=== PATIENT | male | born 1965 | race Caucasian/White ===

== ENCOUNTER → 2018-08-19 08:37 | Outpatient (CLI) | payer BC ==
--- NOTE | 2018-08-23 11:18 | ST ---
PATIENT:MONTSERRAT MAYO MEDICAL RECORD: [id number] SEX: M LOCATION:[facility] ORDER #: ADMISSION DATE: 08/19/18 AGE OF PATIENT: 53 REFERRING PHYSICIAN: INTERPRETING PHYSICIAN: MULU QUIJANO MD DATE OF SERVICE: 08/19/2018 Nuclear stress test. INDICATION: Chest pain, shortness of breath. He was exercised on standard Heath protocol for 8 minutes achieving greater than 85% maximum target heart rate response with 33 mCi of sestamibi injected at peak stress, 11 mCi were used previously for rest images. FINDINGS: Gated SPECT reveals a preserved ejection fraction at 59% with good wall motioning and thickening and brightening throughout all segments. SPECT IMAGING: Cardiolite was used as myocardial perfusion agent. There is definite reversible changes inferiorly and apically, this includes the basal, mid apical inferior segments as well as the apex itself. The degree of reversibility is moderate. The amount of myocardial involved is moderate. OVERALL IMPRESSION: 1. This is an abnormal nuclear stress test, moderate degree of reversibility, inferiorly and apically. 2. Gated SPECT reveals a preserved ejection fraction greater than 50% in this patient with ongoing symptomatology, the current scan does suggest the presence of hemodynamically significant coronary artery disease. We would proceed with coronary angiography as followup study. TRANSINT:[id number] Voice Confirmation ID: [id number] DOCUMENT ID: [id number] MULU QUIJANO MD at 1118 CC: [id number] DICTATION DATE: 08/19/18 1427 SENIOR PRODUCTION MANAGER: 08/19/18 2356 DEP CLI 08/19/18 [address] [place] [address]
== END | disposition home or self-care (01) ==
LOC: D.HCCARDIO 08:30
DX: R07.9 Chest pain, unspecified (principal)

== ENCOUNTER 2018-08-29 09:38 | Outpatient (CLI) | payer BC ==
[~2018-08-29] VITALS: Ht 170.2 cm; Wt 54.5 kg
--- NOTE | ~2018-08-29 | OP ---
PATIENT NAME: MONTSERRAT MAYO MEDICAL RECORD: [id number] :69 LOCATION:D[facility] ADMISSION DATE: SURGEON: MULU QUIJANO MD DATE OF OPERATION: 08/29/2018 PROCEDURES: 1. PTCA and stent, LAD diagonal. 2. Left heart catheterization. 3. Selective coronary angiography. 4. Left ventriculogram. INDICATION: Angina and coronary artery disease. PROCEDURE IN DETAIL: After informed consent was obtained with detailed description of risks and benefits as well as alternative therapies, the patient elected to proceed with angiogram and angioplasty. The right femoral area was prepped and draped in normal sterile fashion. The right femoral artery was cannulated via modified Seldinger technique with placement of 6-Greenlandic sheath. All catheters were exchanged through this sheath. FINDINGS: Left ventriculogram performed in standard 30-degree SALGADO view reveals good cardiac wall motion throughout all segments. Overall ejection fraction estimated at 60%. SELECTIVE CORONARY ANGIOGRAPHY: 1. Left main is with no significant angiographic disease. 2. Left anterior descending is a large diagonal system. The diagonal has 95% stenosis at the ostium. 3. Left circumflex shows moderate irregularities, but no flow-limiting stenosis. 4. Right coronary is small and nondominant with no significant disease. PTCA AND STENT OF THE LAD DIAGONAL: The stent used was 2.5 x 8 mm Integrity. Result was 0% residual stenosis. OVERALL IMPRESSION: Successful PTCA and stent of the LAD diagonal going from 95% initial stenosis to 0% residual. TRANSINT:[id number] Voice Confirmation ID: [id number] DOCUMENT ID: [id number] MULU QUIJANO MD CC: [id number] DICTATION DATE: 08/29/18 1235 ADVERTISING REPRESENTATIVE: 08/29/18 1441 REG [facility] [address] [id number]
--- NOTE | ~2018-08-29 | HEMODYNAMI ---
PATIENT:MONTSERRAT MAYO MEDICAL RECORD: [id number] : 69 LOCATION:[facility] ADMISSION DATE: 08/29/18 Generatedon:08/29/201812:35 Patient name: MONTSERRAT MAYO Patient #: [id number] SSN: DO B: 1965 Date of study: 08/29/2018 Page: Of Hemodynamic Procedure Report Patient Data Patient Demographics Procedure consent was obtained First Name: MONTSERRAT Gender: Male Last Name: MARIA ESTHER : 1965 Middle Initial: A Age: 53 year(s) Patient #: [id number] Race: Unknown Additional ID: [id number] Contact details [address]: [address] [address] State: [place] City: [place] Zip code: [address] Past Medical History Allergies: No known allergies Admission Admission Data Admission Date: 08/29/2018 Admission Time: 9:38 Procedure Procedure Types Cath Procedure Diagnostic Procedure [facility] w/Coronaries PCI Procedure Coronary Stent Coronary Stent Initial Procedure Description Procedure Date Procedure Date: 08/29/2018 Procedure Start Time: 12:22 Procedure End Time: 12:35 Procedure Staff Name Function Valentin Gomez MD Performing Physician Maral Rubio RT Monitor Mana Valdez RN Nurse Maral Rubio RT Scrub Ander Lopez RN Windows System Admin Procedure Data Cath Procedure Fluoroscopy Diagnostic fluoroscopy Total fluoroscopy Time: 2 time: 2 min min Diagnostic fluoroscopy Total fluoroscopy dose: 93 dose: 93 mGy mGy Contrast Material Contrast Material Type Amount (ml) Isovue 300 82 Entry Location Entry Primary Successful Side Size Upsize Upsize Entry Closure Succes sful Closure Location (Fr) 1 (Fr) 2 (Fr) Remarks Device Remarks Femoral Right 5 Fr 6 Fr Exoseal artery Short Estimated blood loss: 10 ml Diagnostic catheters Device Type Used For End Catheter Placement MULTIPACK Pigtail 5 Fr LV Angiography catheter MULTIPACK JL 4.0 5Fr Left Coronary catheter Angiography MULTIPACK 3DRC 5Fr Right Coronary catheter Angiography Procedure Complications No complications Procedure Medications Medication Administration Route Dosage 0.9% NaCl I.V. 100 ml/hr Oxygen etCO2 Nasal cannula 2 l/min Lidocaine 2% added to field 20 Heparin Flush Bag added to field 2 bags (1000units/500ml NS) Versed I.V. 2 mg Fentanyl I.V. 50 mcg Versed I.V. 1 mg Fentanyl I.V. 25 mcg Heparin Bolus I.V. 4000 units Integrilin (Bolus I.V. 5 ml 2mg/ml) Plavix P.O. 600 mg Hemodynamics Rest Heart Rate: 46 (bpm) Snapshots Pre Cath Intra NCS Post Cath Vital Signs Time Heart Resp SPO2 etCO2 NIBP Rhythm Pain Sedation Rate (ipm) (%) (mmHg) (mmHg) Status Level (bpm) 12:09:12 49 14 100 39 104/72(94) SB 0 (11) 10(A) , No pain 12:13:20 54 15 100 18.1 102/71(88) SB 0 (11) 10(A) , No pain 12:17:30 46 11 100 43.2 99/61(74) SB 0 (11) 10(A) , No pain 12:21:37 51 13 99 43.9 91/56(70) SB 0 (11) 10(A) , No pain 12:25:43 56 16 100 47.7 91/58(73) SB 0 (11) 9(A) , No pain 12:29:51 58 10 100 47.7 90/56(70) SB 0 (11) 10(A) , No pain 12:34:01 57 10 100 46.9 87/48(64) SB 0 (11) 10(A) , No pain Medications Time Medication Route Dose Verified Delivered Reason Notes Effectiveness by by 12:08:06 0.9% NaCl I.V. 100 Valentin Mana used for ml/hr Jason Valdez reinstatement clerk 12:08:12 Oxygen etCO2 2 Valentin Mana used for Nasal l/min Jason Valdez procedure cannula RN 12:08:18 Lidocaine 2% added 20ml Valentin Valentin for local to vial Jason Gomez MD anesthetic field 12:08:22 Heparin Flush added 2 Valentin Valentin used for Bag to bags Jason Gomez MD procedure (1000units/500ml field NS) 12:18:23 Versed I.V. 2 mg Valentin Mana for sedation Jason Valdez RN 12:18:30 Fentanyl I.V. 50 Valentin Nga for sedation mcg Jason Valdez RN 12:22:51 Versed I.V. 1 mg Valentin Wallaceyla for sedation Jason Valdez RN 12:22:55 Fentanyl I.V. 25 Valentin Wallaceyla for sedation mcg Jason Valdez RN 12:29:09 Heparin Bolus I.V. 4000 Valentin Nga for verif ied units Jason Valdez anticoagulation with Dr. NELSY Gomez 12:29:26 Integrilin I.V. 5 ml Valentin Nga for waste d (Bolus 2mg/ml) Jason Valdez anticoagulation 5mL RN 12:29:41 Plavix P.O. 600 Valentin Adair for mg Jason Valdez antiplatelet RN therapy Procedure Log Time Note 11:58:16 Ander Lopez RN sent for patient. Start room use. 11:58:17 Time tracking: Regular hours (M-F 7:00 - 5:00) 11:58:20 Plan of Care:Hemodynamics will remain stable., Cardiac rhythm will remain stable., Comfort level will be maintained., Respiratory function will remain adequate., Patient/ family verbilizes understanding of procedure., Procedure tolerated without complication., Recovers from procedure without complications.. 12:03:48 Patient received from Pre/Post Procedure Room to [facility] 3 Alert and oriented. Tansferred to table in Supine position. 12:03:49 Warm blankets applied, and xavi hugger turned on for patient comfort. 12:03:50 Correct patient and procedure confirmed by team. 12:03:51 Signed procedure consent form obtained from patient. 12:03:51 ECG and BP/O2 sat monitors applied to patient. 12:03:52 Full Disclosure recording started 12:07:55 Vital chart was started 12:08:06 0.9% NaCl 100 ml/hr I.V. was administered by Mana Valdez RN; used for procedure; 12:08:12 Oxygen 2 l/min etCO2 Nasal cannula was administered by Mana Valdez RN; used for procedure; 12:08:18 Lidocaine 2% 20ml vial added to field was administered by Valentin Gomez MD; for local anesthetic; 12:08:22 Heparin Flush Bag (1000units/500ml NS) 2 bags added to field was administered by Valentin Gomez MD; used for procedure; 12:12:46 Rhythm: sinus bradycardia 12:12:59 H&P Date Dictated: 08/10/2018 Within 30 days and on chart., H&P Addendum completed by physician on day of procedure. (MUST COMPLETE FOR ALL OUTPATIENTS). 12:13:00 Pre-procedure instructions explained to patient. 12:13:00 Pre-op teaching completed and patient verbalized understanding. 12:13:03 Family in patients room. 12:13:05 Patient NPO since Midnight. 12:13:13 Patient allergic to No known allergies 12:13:15 Is the patient allergic to Iodine/contrast media? No. 12:13:20 Is patient on blood thinner?No 12:13:21 Patient diabetic? No. 12:15:01 Previous problem with sedation/anesthesia? No ? 12:15:02 Snore? No 12:15:04 Sleep apnea? No 12:15:04 Deviated septum? No 12:15:06 Opens mouth fully? Yes 12:15:06 Sticks out tongue? Yes 12:15:08 Airway obstruction? No ? 12:15:10 Dentures? Yes out 12:15:13 Pre procedure: right dorsailis pedis pulse 2+ Normal; easily identifiable; not easily obliterated 12:15:16 Modified Zafar's test Ulnar > 7 seconds. 12:15:18 Patient pain scale 0/10 ?. 12:15:25 Lab results completed and on chart. 12:15:41 Right groin area was prepped with chlora-prep and draped in sterile fashion 12:15:42 Alarms reviewed by R. N. 12:15:42 Sharps counted by scrub and verified by R.N. 12:15:49 Use device set Femoral Dx 12:15:50 ACIST Syringe (41835) opened to sterile field. 12:15:51 Bag Decanter () opened to sterile field. 12:15:51 Medline Cath Pack ([id number]) opened to sterile field. 12:15:51 DIAGNOSTIC WIRE .035 260cm J wire (939101) opened to sterile field. 12:15:52 ACIST Hand Control (40919) opened to sterile field. 12:15:53 ACIST Manifold (99003) opened to sterile field. 12:15:53 DIAGNOSTIC Multipack 5Fr catheter set ([id number]) opened to sterile field. 12:15:54 Tegaderm 4 x 4 (1626W) opened to sterile field. 12:15:55 SHEATH 5FR Gilbert ([id number]) opened to sterile field. 12:16:09 Baseline sample Acquired. 12:17:57 Final Timeout: patient, procedure, and site verified with staff and physician. All members of the team are in agreement. 12:17:59 Right groin site verified by team. 12:18:05 Fire Safety Assessment: A--An alcohol-based skin anteseptic being used preoperatively., C--Open oxygen or nitrous oxide is being used., D--An ESU, laser, or fiber-optic light is being used. 12:18:10 Physical assessment completed. ASA score P 2 - A patient with mild systemic disease as per Valentin Gomez MD. 12:18:12 Sedation plan: IV Moderate Sedation Medication:Versed, Fentanyl 12:18:23 Versed 2 mg I.V. was administered by Mana Valdez RN; for sedation; 12:18:30 Fentanyl 50 mcg I.V. was administered by Mana Valdez RN; for sedation; 12:20:45 Zero performed for pressure channel P1 12:22:00 Procedure started. 12:22:24 Local anesthetic to right femoral artery with Lidocaine 2% by Valentin Gomez MD.INITIAL ACCESS ONLY 12:22:41 A 5 Fr sheath was inserted into the Right Femoral artery 12::51 Versed 1 mg I.V. was administered by Mana Valdez RN; for sedation; 12::55 Fentanyl 25 mcg I.V. was administered by Mana Valdez RN; for sedation; 12:23:03 A MULTIPACK Pigtail 5 Fr catheter was advanced over the wire and used for LV Angiography. 12:23:29 LV gram done using SALGADO 12:23:32 Injector settings: Ml/sec: 10, Volume: 20, 12:23:43 EF : 50 % 12:23:48 Catheter removed. 12:23:51 A MULTIPACK JL 4.0 5Fr catheter was advanced over the wire and used for Left Coronary Angiography. 12:25:40 Catheter removed. 12::53 A MULTIPACK 3DRC 5Fr catheter was advanced over the wire and used for Right Coronary Angiography. 12::18 Catheter removed. 12:: Use device set FELIZ PCI 12:26:24 SHEATH 6FR Gilbert (XRE779) opened to sterile field. 12::18 INFLATOR Merit BasixCompak (HK1468) opened to sterile field. 12::22 CHOICE PT Extra Support 182cm wire ([id number]) opened to sterile field. 12:27:36 Sheath upsized to a 6 Fr Short. 12::47 6 Fr XBLAD 3.5 guide catheter was inserted over the wire 12::57 GUIDE 6FR XBLAD 3.5 catheter ([id number]) opened to sterile field. 12::25 WHISPER wire advanced. 12::35 WHISPER 300cm guide wire ([id number]) opened to sterile field. 12:29:09 Heparin Bolus 4000 units I.V. was administered by Mana Valdez RN; for anticoagulation; verified with Dr. Gomez 12:: Integrilin (Bolus 2mg/ml) 5 ml I.V. was administered by Mana Valdez RN; for anticoagulation; wasted 5mL 12:29:40 Place stent Inflation Number: 1 A INTEGRITY OTW 2.5 X 8 stent ([id number]) was prepped and advanced across the 1st Diag. The stent was deployed at 15 JUAN CARLOS for 0:03 (min:sec). 12:29:41 Plavix 600 mg P.O. was administered by Maan Valdez RN; for antiplatelet therapy; 12:30:07 Stent catheter was removed intact over wire. 12:30:08 Wire removed. 12:30:08 Guide catheter removed. 12::18 Sheath removed intact; hemostasis achieved with Exoseal to the Right Femoral artery. 12:30:20 Procedure ended.(Physican Out) 12:31:45 Fluoroscopy time 02.00 minutes. 12:31:50 Flurop Dose total: 93 12:31:50 Fluoroscopy dose: 93 mGy 12::53 Contrast amount:Isovue 300 82ml. 12:31:54 Sharps counted by scrub and verified by R.N. 12:31:56 Insertion/operative site no bleeding no hematoma. 12:31:58 Post-op/insertion site Right Femoral artery dressed using a 4 x 4 and Tegaderm. 12:32:01 Post right femoral artery:stable, clean and dry 12:32:02 Post Procedure Pulses reassessed and unchanged 12:32:05 Post-procedure physical assessment completed. ASA score P 2 - A patient with mild systemic disease as per Valentin Gomez MD. 12:32:08 Post procedure rhythm: unchanged. 12:32:11 Estimated blood loss: 10 ml 12:32:12 Post procedure instruction explained to patient.Patient verbalizes understanding. 12:32:13 Patient needs reinforcement of post procedure teaching. 12:32:19 Procedure type changed to Cath procedure, Diagnostic procedure, LHC, LHC w/Coronaries, PCI procedure, Coronary Stent, Coronary Stent Initial 12:32:33 Procedure Complication : No complications 12:32:36 See physician's report for complete and final results. 12:33:01 Procedure and supply charges have been captured, reviewed, submitted and are correct. 12:34:34 Vital chart was stopped 12:34:54 Report given to Pre/Post Procedure Room. 12:34:56 Patient transfered to Pre/Post Procedure Room with Stretcher. 12:35:04 Procedure ended. 12:35:04 Full Disclosure recording stopped 12:35:07 End room use (Document Last) Intervention Summary Intervention Notes Time ActionType Lesion and Equipment Action# Pressure Duration Attributes Used 12:29:40 Place stent 1st Diag INTEGRITY 1 15 00:03 OTW 2.5 X 8 stent ([id number]) Device Usage Item Name Manufacture Quantity Catalog Number Hospital Part Current Minim al Lot# / Charge Number Stock Stock Serial# Code ACIST Acist 1 71538 590205 860219 394633 20 Syringe Medical (97368) Systems Inc Bag Microtek 1 354016 28046 219100 5 Decanter Medical Inc. () Medline Medline 1 [id number] 637032 25332 593695 5 Cath Pack ([id number]) DIAGNOSTIC St Amor 1 313238 101093 423054 944717 30 WIRE .035 260cm J wire (442362) ACIST Hand Acist 1 59778 708522 209094 729543 5 Control Medical (89729) Systems Inc ACIST Acist 1 23790 203544 825298 888530 5 Manifold Medical (01036) Systems Inc DIAGNOSTIC Cardinal 1 JG2674 609086 28106 783023 30 Multipack Health 5Fr catheter set (HJ6018) Tegaderm 4 3M 1 1626W 860334 309445 819381 5 x 4 (1626W) SHEATH 5FR Terumo 1 XLP038 053657 133916 909844 5 Gilbert (QET682) MULTIPACK Cardinal 1 606235 5 Pigtail 5 Health Fr catheter MULTIPACK Cardinal 1 015619 5 JL 4.0 5Fr Health catheter MULTIPACK Cardinal 1 037318 5 3DRC 5Fr Health catheter SHEATH 6FR Terumo 1 HDV206 920275 910679 710459 40 Gilbert (GZN273) INFLATOR Merit 1 KW0372 754846 359327 505949 15 [facility] Medical BasixCompak (MN2573) CHOICE PT Noble 1 [id number] 418620 954822 339205 5 Extra Scientific Support 182cm wire ([id number]) GUIDE 6FR Cardinal 1 [id number] 780468 382024 679758 10 XBLAD 3.5 Health catheter ([id number]) WHISPER Wallace 1 [id number] 158637 263935 466475 5 300cm guide Vascular wire ([id number]) INTEGRITY Medtronic 1 [id number] 011376 281799 868103 0 [id number] OTW 2.5 X 8 stent ([id number]) Signature Audit [place] Stage Time Signature Unsigned Intra-Procedure 08/29/2018 Maral 12:35:20 PM Counts RT(R) Signatures Monitor : Maral Signature : Counts RT Date : Time : [facility] [address] [place] [address]
[2018-08-29] MEDS ORDERED: ASPIRIN EC81 M1 PO (10:01)
[2018-08-29] MEDS ORDERED: CELEXA20 MG PO (10:01)
[2018-08-29 10:11] VITALS: BP 115/71; Ht 170.2 cm; Wt 54.5 kg
[2018-08-29 10:13] LABS: BASOPHILS 0.4 % (0-2); EOSINOPHILS 2.9 % (0-7); HEMATOCRIT 42.4 % (42.0-54.0); HEMOGLOBIN 14.7 g/dL (13.5-17.5); LYMPHOCYTES 28.9 % (15-50); MCH 31.8 pg (26.0-34.0); MCHC 34.7 g/dL (31.0-37.0); MCV 91.8 fL (80.0-100.0); MEAN PLATELET VOLUME 9.6 fL (7.4-10.4); MONOCYTES 9.6 % (2-11); NEUTROPHILS 58.2 % (40-80); PLATELET COUNT 185 10x3/uL (130-400); RBC 4.62 10x6/uL (4.20-6.10); RDW 12.5 % (11.5-14.5); WBC 4.5 10x3/uL (4.8-10.8)
[2018-08-29 10:34] LABS: CALC OSMOLALITY 283 mosm/kg (275-300); CALCIUM 8.7 mg/dL (8.5-10.1); CARBON DIOXIDE 26.9 mmol/L (21.0-32.0); CHLORIDE - SERUM 104 mmol/L (98-107); CREATININE - SERUM 1.1 mg/dL (0.6-1.3); GLUCOSE 91 mg/dL (74-106); POTASSIUM - SERUM 4.2 mmol/L (3.5-5.1); SODIUM 142 mmol/L (136-145); UREA NITROGEN 16 mg/dL (7-18); eGFR NON AFRICAN AMERICAN 75 mL/min (90-120)
[2018-08-29] MEDS ORDERED: PLAVIX75 MG PO (12:44)
--- NOTE | 2018-08-29 13:02 | NUR ---
RECEIVED PT FROM ELECTRONICS TECHNOLOGY INSTRUCTOR, PT IS SLEEPING, RESP WITH EASE ON O2 AT 2LPM VIA NC. SINUS PETER AT 48. BP IS 90/58. HOB IS FLAT, FEMSTOP INTACT TO RIGHT GROIN, WITH PRESSURE AT 130. PEDAL PULSES BY DOPPLER. RESP WITH EASE ON OT AT 2LPM VIA NC. AT BEDSIDE, CALL LIGHT IN REACH.
--- NOTE | 2018-08-29 13:08 | NUR ---
FEMSTOP IN TACT, NO BLEEDING OR HEMATOMA NOTED. PEDAL PULSES BY DOPPLER. HOB IS FLAT, SINUS PETER AT 46, BP IS 85/54. AT BEDSIDE, CALL LIGHT IN REACH.
--- NOTE | 2018-08-29 13:21 | NUR ---
PT SLEEPING INTERMITTENTLY, FEMSTOP INTACT WITH NO BLEEDING OR HEMATOMA AT CATH SITE. PEDAL PULSES BY DOPPLER. SINUS PETER AT 46.
--- NOTE | 2018-08-29 14:08 | NUR ---
1336 PT C/O PAIN TO RIGHT UPPER CHEST AREA, RATES A 6/10, DENIES ANY SHORTNESS OF BREATH, NAUSEA OR RADIATION. EKG OBTAINED, SINUS PETER WITH RATE OF 44. BP IS 110/76. HOB TILTED UP, FEMSTOP WEANED OF 20 MM HG. PEDAL PULSES PALPABLE. APPLE JUICE SERVED. FAMILY AT BEDSIDE. 1342 RECHECK PT, PT STATES PAIN RESOLVED. NO BLEEDING OR HEMATOMA NOTED AT CATH SITE, FEMSTOP IN PLACE.
--- NOTE | 2018-08-29 14:26 | NUR ---
1350 FEMSTOP WEANED OF 20 MM HG, NO BLEEDING AT SITE. PEDAL PULSES PALPABLE. SINUS PETER AT 44. DENIES ANY C/O CHEST PAIN AT THIS TIME.
--- NOTE | 2018-08-29 14:30 | NUR ---
1410 20 MM HG PRESSURE WEANED FROM FEMSTO[P WITH NO BLEEDING NOTED. PEDAL PULSES PALPABLE. PT DENIES ANY C/O CHES PAIN AT THIS TIME. SINUS PETER AT 47. 1425 20 MM HG PRESSURE WEANED FROM FEMSTOP WITH NO BLEEDING NOTED. PEDAL PULSES PALPABLE. HOB IS TILTED. FAMILY AT BEDSIDE. CALL LIGHT IN REACH, DENIES ANY C/O PAIN AT THIS TIME.
--- NOTE | 2018-08-29 14:54 | NUR ---
3880 DR QUIJANO HAS ROUNDED ON PT AND REVIEWED EKG, NO NEW ORDERS NOTED. PT DENIES ANY FURTHER C/O CHEST PAIN. FEMSTOP HAS BEEN WEANED WITH NO BLEEDING NOTED AT SITE. PEDAL PULSES PALPABLE. HOB IS FLAT, SHALINI PO FLUIDS AND PUDDING WITH NO C/O NAUSEA.
--- NOTE | 2018-08-29 15:22 | NUR ---
PT IS ALERT, DENIES ANY C/O. DRESSING REMAINS CDI TO RIGHT GROIN, NO BLEEDING OR HEMATOMA NOTED. HOB IS FLAT, PEDAL PULSES PALPABLE. AT BEDSIDE, CALL LIGTH IN REACH.
--- NOTE | 2018-08-29 15:54 | NUR ---
HOB ELEVATED AND SANDWICH SERVED. PT IS ALERT AND DENIES ANY C/O. DRESSING REMAINS CDI TO RIGHT GROIN. FAMILY AT BEDSIDE.
--- NOTE | 2018-08-29 16:35 | NUR ---
1615 PT HAS TOLERATED SANDWICH WITH NO C/O NAUSEA. DRESSING REMAINS CDI TO RIGHT GROIN, AREA IS SOFT AND NONTENDER. PEDAL PULSES PALPABLE. DC INSTRUCTIONS REVIEWED WITH PT AND WHO VERBALIZE UNDERSTANDING. IV DC'D WITH CATH INTACT 1630 PT HAS DRESSED FOR DC TO HOME. HAS AMBULTED TO THE BATHROOM AND VOIDED QS. DENIES ANY C/O. PT ESCORTED TO PRIVATE AUTO VIA WC BY NURSE WITH DAUGHTER DRIVING HIM HOME.
== END 2018-08-29 16:30 | disposition home or self-care (01) ==
LOC: D.CATH 09:38
PROVIDERS: ATTEND Internal Medicine Interventional Cardiology
DX: I25.119 Atherosclerotic heart disease of native coronary artery with unspecified angina pectoris (principal); Z01.812 Encounter for preprocedural laboratory examination

== ENCOUNTER → 2018-12-19 09:58 | Outpatient (CLI) | payer BC ==
[2018-08-29 10:11] VITALS: BMI 18.8
[~2018-12-19 09:58] MED LIST: ASPIRIN EC81 M1 PO; CELEXA20 MG PO; ISOSORBIDE MONO30 M1 PO; NITROSTAT0.4 MG SL; PLAVIX75 MG PO
--- NOTE | 2018-12-21 10:00 | ST ---
PATIENT:MONTSERRAT MAYO MEDICAL RECORD: [id number] SEX: M LOCATION:[facility] ORDER #: ADMISSION DATE: 12/19/18 AGE OF PATIENT: 53 REFERRING PHYSICIAN: INTERPRETING PHYSICIAN: MULU QUIJANO MD DATE OF SERVICE: 12/19/2018 PROCEDURE: Nuclear stress test. INDICATIONS: Angina, coronary artery disease, shortness of breath. He was exercised on a standard Heath protocol for 10 minutes achieving greater than 85% of max target heart rate response with 32 mCi of sestamibi injected at peak stress, 12 mCi used previously for rest images. FINDINGS: Gated SPECT reveals preserved ejection fraction at 65% with good wall motioning and thickening and brightening throughout all segments. SPECT imaging: Cardiolite was used a myocardial perfusion agent. There is reversibility inferiorly, apically, and septally. This includes the basal, mid, apical, inferior segments, apical septal, mid septal, basal septal as well as the apex itself. The degree of reversibility is mild to moderate. The amount of myocardium involved is moderate to large. OVERALL IMPRESSION: 1. This is an ylkedvtqeopf-jg-bwnf risk abnormal nuclear stress test with relatively large amount of myocardium involved with reversibility inferiorly, apically, and septally. 2. Gated SPECT reveals preserved ejection fraction at 65%. In this patient with ongoing symptomatology, the current scan does suggest presence of hemodynamically significant coronary artery disease. We will proceed with coronary angiography as a followup study. TRANSINT:[id number] Voice Confirmation ID: [id number] DOCUMENT ID: [id number] MULU QUIJANO MD at 1000 CC: GEOVANI HAWKINS [id number] DICTATION DATE: 12/19/18 1622 SILVER RECOVERY OPERATOR: 12/20/18 0707 DEP CLI 12/19/18 [id number] [place] [address]
--- NOTE | 2018-12-21 10:00 | EC ---
PATIENT:MONTSERRAT MAYO DATE OF SERVICE: 12/19/18 SEX: M MEDICAL RECORD: [id number] DATE OF : 69 [facility] AGE OF PATIENT: 53 ADMISSION DATE: 12/19/18 REFERRING PHYSICIAN: INTERPRETING PHYSICIAN: MULU GOMEZ MD ECHOCARDIOGRAM REPORT ECHO CHARGES 4 ECHO COMPLETE Date: 12/19/18 CLINICAL DIAGNOSIS: FATIGUE/CP/DIZZINESS/DESOUZA H/O CAD ECHOCARDIOGRAPHIC MEASUREMENTS (adult normal given) AC root (d.<3.7cm) 2.9 cm LV Septum d (<1.2 cm> 0.9 cm Valve Excursion 1.7 cm LV Septum (systole) 1.4 cm Left Atria (s.<4.0cm> 2.6 cm LVPW d(<1.2cm) 1.0 cm RV (d.<2.3cm) 2.0 cm LVPW (sytole) 1.5 cm LV diastole(<5.6CM) 4.7 cm MV E-F(>70mm/sec) cm LV systole 2.8 cm LVOT Diameter 2.0 cm MV exc.(>10mm) cm Est.ejection fraction (50-75%) % DOPPLER: LVIT cm/sec A 44.0 cm/sec E 80.0 cm/sec LA cm/sec RVSP 29.0 mmHg LVOT 78.0 cm/sec AOP1/2T m/s Asc. Ao 97.0 cm/sec RVOT 45.0 cm/sec RA cm/sec PA 64.0 cm/sec AV Gradient Peak 3.8 mmHg AV Mean 2.2 mmHg AV Area 2.2 cm MV Gradient Peak 3.0 mmHg MV Mean 0.95 mmHg MV Area cm COMMENTS: OP - HC Sole Ruffer: Marry SIMMONS LEON Dry Cell Assembly Supervisor: 1 Dr. Gomez TAPE# PACS Pericardial Effusion N DATE OF SERVICE: 12/19/2018 FINDINGS: 1. Left ventricular chamber size is within normal limits. Left ventricular systolic function is normal. Overall ejection fraction is estimated at 55% to 60%. 2. Left atrium, right atrium, and right ventricular chamber sizes are within normal limit. 3. Valvular structures have normal structure and motion. 4. Doppler interrogation reveals ubni-be-vqdfeota mitral regurgitation and ECHOCARDIOGRAM REPORT [id number] MARIA ESTHER,MONTSERRAT A ovjl-ja-lmowkytg tricuspid regurgitation. No other valvular insufficiency or stenosis. Pulmonary systolic pressure is estimated at 29 mmHg. 5. No evidence of pericardial effusion or left ventricular thrombus. TRANSINT:[id number] Voice Confirmation ID: [id number] DOCUMENT ID: [id number] MULU GOMEZ MD at 1000 CC: [id number] DICTATION DATE: 12/19/18 1617 COTTON PICKER OPERATOR: 12/19/181952 DEP CLI 12/19/18 [id number] [place] [address]
== END | disposition home or self-care (01) ==
LOC: D.HCCARDIO 12-13 08:30
PROVIDERS: ATTEND Internal Medicine Interventional Cardiology
DX: I25.10 Atherosclerotic heart disease of native coronary artery without angina pectoris (principal)

== ENCOUNTER 2018-12-27 07:54 | Outpatient (CLI) | payer BC ==
[~2018-12-27] VITALS: Ht 170.2 cm; Wt 60.9 kg
--- NOTE | ~2018-12-27 | HEMODYNAMI ---
PATIENT:MONTSERRAT MAYO MEDICAL RECORD: [id number] : 69 LOCATION:[facility] ADMISSION DATE: 12/27/18 Generatedon:12/27/201810:45 Patient name: MONTSERRAT MAYO Patient #: [id number] SSN: DO B: 1965 Date of study: 12/27/2018 Page: Of Hemodynamic Procedure Report Patient Data Patient Demographics Procedure consent was obtained First Name: MONTSERRAT Gender: Male Last Name: MARIA ESTHER : 1965 Middle Initial: A Age: 53 year(s) Patient #: [id number] Race: Unknown Additional ID: [id number] Contact details [address]: [address] [place] [address] State: [place] City: [place] Zip code: [address] Past Medical History Allergies: No known allergies Admission Admission Data Admission Date: 12/27/2018 Admission Time: 7:54 Admit Source: Other Weight (lbs.): 134.48 Weight (kg.): 61 Lab Results Lab Result Date: 12/27/2018 Lab Result Time: 0:00 Biochemistry Name Units Result Min Max BUN mg/dl 18 --(---*)-- 7 18 Creatinine mg/dl 1.1 --(--*-)-- 0.6 1.3 eGFR ml/min 75 *-(----)-- 90 120 NONAFRICAN CBC Name Units Result Min Max Hemoglobin g/dl 14.4 --(*---)-- 13.5 17.5 Procedure Procedure Types Cath Procedure Diagnostic Procedure LHC LHC w/Coronaries FFR/IVUS FFR Initial PCI Procedure Coronary Stent Coronary Stent Initial Procedure Description Procedure Date Procedure Date: 12/27/2018 Procedure Start Time: 10:25 Procedure End Time: 10:41 Procedure Staff Name Function Jacob Graf RT Monitor Kelsie Louis RN Wheel Presser Valentin Gomez MD Performing Physician Rich Maya RT Scrub Farhan Mooney RN Nurse Procedure Data Cath Procedure Fluoroscopy Diagnostic fluoroscopy Total fluoroscopy Time: 3.9 time: 3.9 min min Diagnostic fluoroscopy Total fluoroscopy dose: 440 dose: 440 mGy mGy Contrast Material Contrast Material Type Amount (ml) Isovue 370 95 Entry Location Entry Primary Successful Side Size Upsize Upsize Entry Closure Estrella ccessful Closure Location (Fr) 1 (Fr) 2 (Fr) Remarks Device Remarks Radial Right 6 Fr Mechanical artery Short Compression Estimated blood loss: 10 ml Diagnostic catheters Device Type Used For End Catheter Placement DIAGNOSTIC [place] 110cm 5 Procedure Fr catheter (004023) Procedure Complications No complications Procedure Medications Medication Administration Route Dosage 0.9% NaCl I.V. 100 ml/hr Oxygen etCO2 Nasal cannula 2 l/min Heparin Flush Bag 2 bags (1000units/500ml NS) Lidocaine 2% added to field 20 Radial Cocktail added to field 1 syringe (Verapamil 2mg/Nitro 400mcg/Heparin 1500units) Versed I.V. 2 mg Fentanyl I.V. 100 mcg Radial Cocktail I.A. 1 syringe (Verapamil 2mg/Nitro 400mcg/Heparin 1500units) Heparin Bolus I.V. 4000 units Integrilin (Bolus I.V. 5.6 ml 2mg/ml) Integrilin (Bolus wasted 4.4 ml 2mg/ml) Plavix P.O. 600 mg Hemodynamics Rest HGB: 14.4 (g/dl) Heart Rate: 47 (bpm) Snapshots Pre Cath Intra NCS Post Cath Vital Signs Time Heart Resp SPO2 etCO2 NIBP Rhythm Pain Sedation Rate (ipm) (%) (mmHg) (mmHg) Status Level (bpm) 10:11:36 45 24 95 44.3 98/65(79) NSR 0 (11) 10(A) , No pain 10:15:34 48 12 98 43.5 102/72(84) NSR 0 (11) 10(A) , No pain 10:19:31 50 17 98 46.6 92/75(83) NSR 0 (11) 10(A) , No pain 10:23:49 48 16 97 48 100/72(88) NSR 0 (11) 10(A) , No pain 10:27:55 58 16 97 44.3 95/53(70) NSR 0 (11) 10(A) , No pain 10:32:50 51 17 97 45.7 107/66(87) NSR 0 (11) 9(A) , No pain 10:36:54 48 18 97 48.1 107/71(87) NSR 0 (11) 9(A) , No pain 10:40:58 49 11 97 49.6 103/72(87) NSR 0 (11) 10(A) , No pain Medications Time Medication Route Dose Verified Delivered Reason Not es Effectiveness by by 10:06:40 0.9% NaCl I.V. 100 Farhan Farhan Per physician ml/hr Vinicio Mooney RN RN 10:06:49 Oxygen etCO2 2 l/min Farhan Farhan Per physician Nasal Vinicio Mooney cannula RN RN 10:07:02 Heparin Flush 2 bags Farhan Farhan used for Bag Vinicio Mooney procedure (1000units/500ml RN RN NS) 10:07:11 Lidocaine 2% added 20ml Farhan Farhan for local to vial Lorigan Vinicio anesthetic RN RN 10:07:21 Radial Cocktail added 1 Farhan Farhan used for (Verapamil to syringe Lordidi Mooney procedure 2mg/Nitro RN RN 400mcg/Hepari 10:23:43 Versed I.V. 2 mg Farhan Farhan for sedation Vinicio Mooney RN RN 10:23:52 Fentanyl I.V. 100 mcg Farhan Farhan for sedation Vinicio Mooney RN RN 10:26:23 Radial Cocktail I.A. 1 Farhan Valentin for (Verapamil syringe Vinicio Gomez MD vasodilation 2mg/Nitro RN 400mcg/Heparin 1500units) 10:36:04 Heparin Bolus I.V. 4000 Farhan Farhan for units Vinicio Mooney anticoagulation RN RN 10:37:08 Integrilin I.V. 5.6 ml Farhan Farhan for (Bolus 2mg/ml) Vinicio Mooney antiplatelet RN RN therapy 10:37:26 Integrilin wasted 4.4 ml Farhan Farhan to sharp's (Bolus 2mg/ml) Vinicio Mooney RN RN 10:41:29 Plavix P.O. 600 mg Farhan Farhan for Vinicio Mooney antiplatelet RN RN therapy Procedure Log Time Note 9:06:16 Informed consent obtained and on chart 9:06:20 Admit Source: Other 9:06:37 Diagnostic Cath status Elective 9:06:38 Time tracking: Regular hours (M-F 7:00 - 5:00) 9:06:41 Plan of Care:Hemodynamics will remain stable., Cardiac rhythm will remain stable., Comfort level will be maintained., Respiratory function will remain adequate., Patient/ family verbilizes understanding of procedure., Procedure tolerated without complication., Recovers from procedure without complications.. 9:06:50 H&P Date Dictated: 12/01/2018 Within 30 days and on chart., H&P Addendum completed by physician on day of procedure. (MUST COMPLETE FOR ALL OUTPATIENTS). 9:07:34 Patient Weight : 134.48 lbs 9:40:38 Lab Result : eGFR NONAFRICAN 75 ml/min 9:40:38 Lab Result : Hemoglobin 14.4 g/dl 9:40:38 Lab Result : BUN 18 mg/dl 9:40:38 Lab Result : Creatinine 1.1 mg/dl 9:45:30 Kelsie Louis RN sent for patient. Start room use. 9:51:16 Lab results completed and on chart. 9:57:58 Patient received from Pre/Post Procedure Room to CCL 2 Alert and oriented. Tansferred to table in Supine position. 9:58:00 ECG and BP/O2 sat monitors applied to patient. 9:58:00 Correct patient and procedure confirmed by team. 9:58:00 Warm blankets applied, and xavi hugger turned on for patient comfort. 9:58:01 Pre-op teaching completed and patient verbalized understanding. 9:58:01 Pre-procedure instructions explained to patient. 9:58:03 Family in waiting room. 10:06:40 0.9% NaCl 100 ml/hr I.V. was administered by Farhan Mooney RN; Per physician; 10:06:49 Oxygen 2 l/min etCO2 Nasal cannula was administered by Farhan Mooney RN; Per physician; 10:07:02 Heparin Flush Bag (1000units/500ml NS) 2 bags was administered by Farhan Mooney RN; used for procedure; 10:07:11 Lidocaine 2% 20ml vial added to field was administered by Farhan Mooney RN; for local anesthetic; 10:07:21 Radial Cocktail (Verapamil 2mg/Nitro 400mcg/Heparin 1500units) 1 syringe added to field was administered by Farhan Mooney RN; used for procedure; 10:10:25 Vital chart was started 10:10:26 Baseline sample Acquired. 10:10:30 Rhythm: sinus bradycardia 10:10:32 Full Disclosure recording started 10:10:34 Patient NPO since Midnight. 10:10:46 Is the patient allergic to Iodine/contrast media? No. 10:10:50 Is patient on blood thinner?No 10:10:52 Patient diabetic? No. 10:10:54 Previous problem with sedation/anesthesia? No ? 10:10:55 Snore? Yes 10:10:57 Sleep apnea? No 10:10:58 Opens mouth fully? Yes 10:10:58 Deviated septum? No 10:10:59 Sticks out tongue? Yes 10:11:01 Airway obstruction? No ? 10:11:04 Dentures? Yes IN 10:11:09 Pre procedure: right dorsailis pedis pulse 1+ Palpable, but thready & weak; easily obliterated 10:11:11 Modified Zafar's test Ulnar < 7 seconds 10:11:14 Patient pain scale 0/10 ?. 10:11:19 IV patent on arrival in left forearm with 0.9% NaCl at [facility]. 10:11:24 Right Radial & Right Groin area was prepped with chlora-prep and draped in sterile fashion 10:11:25 Alarms reviewed by R. N. 10:11:26 Sharps counted by scrub and verified by R.N. 10:22:02 Full Disclosure recording stopped 10:22:41 Vital chart was started 10:23:01 --------ALL STOP TIME OUT------ 10:23:02 Final Timeout: patient, procedure, and site verified with staff and physician. All members of the team are in agreement. 10:23:06 Right Radial & Right Groin site verified by team. 10:23:10 Fire Safety Assessment: A--An alcohol-based skin anteseptic being used preoperatively., C--Open oxygen or nitrous oxide is being used., D--An ESU, laser, or fiber-optic light is being used. 10:23:14 Physical assessment completed. ASA score P 2 - A patient with mild systemic disease as per Valentin Gomez MD. 10:23:18 2) 60-89 Mildly reduced kidney function, and other findings (as for stage 1) point to kidney disease. 10:23:23 Maximum allowable contrast does (3.7 X eGFR X 0.75)208 ml. 10:23:27 Sedation plan: IV Moderate Sedation Medication:Versed, Fentanyl 10:23:43 Versed 2 mg I.V. was administered by Farhan Mooney RN; for sedation; 10:23:52 Fentanyl 100 mcg I.V. was administered by Farhan Mooney RN; for sedation; 10:25:12 Procedure started. 10:25:13 Full Disclosure recording started 10:25:19 Local anesthetic to right radial artery with Lidocaine 2% by Valentin Gomez MD.INITIAL ACCESS ONLY 10:25:36 Use device set Radial Dx or PCI 10:25:40 ACIST Syringe (14905) opened to sterile field. 10:25:41 Medline Cath Pack ([id number]) opened to sterile field. 10:25:41 Bag Decanter (2002S) opened to sterile field. 10:25:42 ACIST Hand Control (20141) opened to sterile field. 10:25:42 ACIST Manifold (75720) opened to sterile field. 10:25:43 Tegaderm 4 x 4 (1626W) opened to sterile field. 10:25:44 MBrace Wrist Support ([id number]) opened to sterile field. 10:25:48 SHEATH 6FR Slender (801060) opened to sterile field. 10:25:48 EMERALD Guide Wire (007-972) opened to sterile field. 10:26:09 A 6 Fr Short sheath was inserted into the Right Radial artery 10:26:23 Radial Cocktail (Verapamil 2mg/Nitro 400mcg/Heparin 1500units) 1 syringe I.A. was administered by Valentin Gomez MD; for vasodilation; 10:26:56 A DIAGNOSTIC [place] 110cm 5 Fr catheter (912738) was advanced over the wire and used for Procedure. 10:27:07 LV angiography performed. 10:27:09 LV gram done using SALGADO 10::13 EF : 60 % 10:27:17 Injector settings: Ml/sec: 7, Volume: 15, 10:27:47 LCA angiography performed. 10:28:44 RCA angiography performed. 10:28:58 Catheter removed. 10:29:04 Use device set SAMM PCI 10:29:15 INFLATOR Merit BasixCompak (OX6027) opened to sterile field. 10:29:20 [place] Verrata Plus pressure wire (10758F) opened to sterile field. 10:29:23 GUIDE 6FR XBLAD 3.5 catheter (27385550) opened to sterile field. 10:30:24 6 Fr XBLAD 3.5 guide catheter was inserted over the wire 10:31:48 FFR/IFR wire advanced. 10:34:33 Wire advanced across lesion. 10:35:12 mLAD lesion measured at 0.44 with IFR 10:35:33 Wire removed. 10:35:43 CHOICE PT Extra Support 182cm wire ([id number]) opened to sterile field. 10:36:04 Heparin Bolus 4000 units I.V. was administered by Farhan Mooney RN; for anticoagulation; 10:36:04 CPTXS wire advanced. 10:36:10 Pre PCI Site: [place] mLAD has 75% stenosis. 10:36:19 Wire advanced across lesion. 10:37:08 Integrilin (Bolus 2mg/ml) 5.6 ml I.V. was administered by Farhan Mooney RN; for antiplatelet therapy; 10:37:26 Integrilin (Bolus 2mg/ml) 4.4 ml wasted was administered by Farhan Mooney RN; to sharp's; 10:38:07 Place stent Inflation Number: 1 A COBRA RX 3.5 X 08 Stent was prepped and advanced across the Mid LAD 75. The stent was deployed at 15 JUAN CARLOS for 0:10 (min:sec) 0. 10:38:49 Stent catheter was removed intact over wire. 10:38:49 Wire removed. 10:38:50 Guide catheter removed. 10:38:55 TR BAND Standard (IPT18IOE) opened to sterile field. 10:39:56 Procedure ended.(Physican Out) 10:40:03 Sheath removed intact; hemostasis achieved with Mechanical Compression to the Right Radial artery. 10:40:23 Fluoroscopy time 03.90 minutes. 10:40:27 Fluoroscopy dose: 440 mGy 10:40:27 Flurop Dose total: 440 10:40:32 Contrast amount:Isovue 370 95ml. 10:40:34 Sharps counted by scrub and verified by R.N. 10:40:50 TR band inflated with 10cc of air. 10:40:51 Insertion/operative site no bleeding no hematoma. 10:40:53 Post Procedure Pulses reassessed and unchanged 10:40:56 Post-procedure physical assessment completed. ASA score P 2 - A patient with mild systemic disease as per Valentin Gomez MD. 10:40:58 Post procedure rhythm: unchanged. 10:41:01 Estimated blood loss: 10 ml 10:41:03 Post procedure instruction explained to patient.Patient verbalizes understanding. 10:41:03 Patient needs reinforcement of post procedure teaching. 10:41:14 Procedure type changed to Cath procedure, Diagnostic procedure, LHC, LHC w/Coronaries, FFR/IVUS, FFR Initial, PCI procedure, Coronary Stent, Coronary Stent Initial 10:41:15 Procedure and supply charges have been captured, reviewed, submitted and are correct. 10:41:17 Procedure Complication : No complications 10:41:29 Plavix 600 mg P.O. was administered by Farhan Mooney RN; for antiplatelet therapy; 10:41:52 Vital chart was stopped 10:41:52 See physician's report for complete and final results. 10:41:54 Report given to Pre/Post Procedure Room. 10:41:56 Patient transfered to Pre/Post Procedure Room with Stretcher. 10:41:58 Procedure ended. 10:41:58 Full Disclosure recording stopped Intervention Summary Intervention Notes Time ActionType Lesion and Equipment Action# Pressure Duration Attributes Used 10:38:07 Place stent Mid LAD COBRA RX 1 15 00:10 3.5 X 08 Stent Device Usage Item Name Manufacture Quantity Catalog Number Hospital Part Current Minimal Lot# / Charge Number Stock Stock Serial# Code ACIST Syringe Acist 1 32296 977111 930513 322125 20 (70709) Medical Systems Inc Medline Cath Medline 1 [id number] 787957 70670 362404 5 Pack ([id number]) Bag Decanter Microtek 1 2001S 121741 26531 347079 5 (2001S) Medical Inc. ACIST Hand Acist 1 61989 872874 826070 638768 5 Control Medical (41520) Systems Inc ACIST Manifold Acist 1 74762 666177 529941 213430 5 (38506) Medical Systems Inc Tegaderm 4 x 4 3M 1 1626W 678258 717085 104772 5 (1626W) MBrace Wrist Advanced 1 140-0250-00 866197 67849 735061 5 Support Vascular (246201432) Dynamics SHEATH 6FR Terumo 1 [id number] 455168 786940 542371 5 Slender (80-1060) EMERALD Guide Cardinal 1 502-455 535010 533477 579000 5 Wire (142-671) Health DIAGNOSTIC Terumo 1 40-1249 664788 171611 824358 5 [place] 110cm 5 Fr catheter (070435) INFLATOR Merit Merit 1 GF9464 682944 349465 550103 15 [facility] (IG1699) [place] 1 58706P 950643 [id number] 744963 5 Verrata Plus pressure wire (57560E) GUIDE 6FR Cardinal 1 [id number] 210641 547333 208620 10 XBLAD 3.5 Health catheter (92670144) CHOICE PT [place] 1 [id number] 475123 477149 381860 5 Extra Support Scientific 182cm wire ([id number]) COBRA RX 3.5 X Celonova 1 485-27-43373 345989 948302 5200801 2 [id number] 08 stent Biosciences (286-94-46084) TR BAND Terumo 1 [id number] 503241 342556 720984 40 Standard ([id number]) Signature Audit [place] Stage Time Signature Unsigned Intra-Procedure 12/27/2018 Jacob Graf 10:42:00 AM RT(R) Signatures Monitor : Jacob Graf RT Signature : Date : Time : [facility] [address] [facility] [place] [address]
--- NOTE | ~2018-12-27 | OP ---
PATIENT NAME: MONTSERRAT MAYO MEDICAL RECORD: [id number] :69 LOCATION:D.CAT ADMISSION DATE: SURGEON: MULU QUIJANO MD DATE OF OPERATION: 12/27/2018 DATE OF SERVICE: 12/27/2018 PROCEDURES: 1. PTCA stent LAD. 2. IFR. 3. Left heart catheterization. 4. Selective coronary angiography. 5. Left ventriculogram. INDICATION: Angina, coronary artery disease, abnormal nuclear stress test, anterior ischemia. PROCEDURE IN DETAIL: After informed consent was obtained and after a detailed description of risks, benefits as well as alternative therapies, the patient elected to proceed with angiogram and angioplasty. The right femoral area was prepped and draped in normal sterile fashion. Right femoral artery was cannulated via modified Seldinger with placement of 6-Slovenian sheath. All catheters exchanged through this sheaths. FINDINGS: Left ventriculogram was performed in standard 30-degree SALGADO view, reveals good cardiac wall motion throughout all segments. Overall ejection fraction is 60%. SELECTIVE CORONARY ANGIOGRAPHY: 1. Left main is with no significant angiographic disease. 2. Left anterior descending has contrast hangup the LAD diagonal. The LAD diagonal is stented. IFR is markedly abnormal in the LAD. 3. Left circumflex has moderate irregularities, but no flow-limiting stenosis. 4. Right coronary has moderate irregularities, but no flow-limiting stenosis. PTCA STENT OF THE LAD: The LAD was addressed with a 3.5 x 8 mm Cobra stent. Result was 0% residual stenosis. OVERALL IMPRESSION: Successful percutaneous transluminal coronary angioplasty stent of the left anterior descending going from greater than 70% initial stenosis to a markedly abnormal instantaneous wave-free ratio and correlation of the perfusion defect on nuclear stress test to 0% residual stenosis with cheondoism of the thrombolysis in myocardial infarction 3 flow. TRANSINT:[id number] Voice Confirmation ID: [id number] DOCUMENT ID: [id number] MULU QUIJANO MD CC: [id number] DICTATION DATE: 12/27/18 1041 [place] SAWYER: 12/27/18 1058 [facility] [address] [place] [id number]
[~2018-12-27 07:54] MED LIST changes: -ISOSORBIDE MONO30 M1 PO; -NITROSTAT0.4 MG SL
[2018-12-27] MEDS ORDERED: NITROSTAT0.4 MG SL (08:40)
[2018-12-27] MEDS ORDERED: ISOSORBIDE MONO30 M1 PO (08:40)
[2018-12-27] MEDS ORDERED: CELEXA20 MG PO (08:40)
[2018-12-27 08:46] VITALS: BP 153/75; Ht 170.2 cm; Wt 60.9 kg
[2018-12-27 09:00] LABS: BASOPHILS 0.7 % (0-2); EOSINOPHILS 3.2 % (0-7); HEMATOCRIT 40.9 % (42.0-54.0); HEMOGLOBIN 14.4 g/dL (13.5-17.5); IMMATURE GRANULOCYTES 0.2 % (0-5); LYMPHOCYTES 32.5 % (15-50); MCHC 35.2 g/dL (31.0-37.0); MCV 90.9 fL (80.0-100.0); MEAN PLATELET VOLUME 9.7 fL (7.4-10.4); MONOCYTES 9.3 % (2-11); NEUTROPHILS 54.1 % (40-80); PLATELET COUNT 169 10x3/uL (130-400); RDW 12.7 % (11.5-14.5); WBC 4.1 10x3/uL (4.8-10.8)
[2018-12-27 09:04] LABS: CALC OSMOLALITY 280 mosm/kg (275-300); CALCIUM 8.8 mg/dL (8.5-10.1); CARBON DIOXIDE 29.2 mmol/L (21.0-32.0); CHLORIDE - SERUM 106 mmol/L (98-107); CREATININE - SERUM 1.1 mg/dL (0.6-1.3); GLUCOSE 96 mg/dL (74-106); POTASSIUM - SERUM 3.6 mmol/L (3.5-5.1); SODIUM 140 mmol/L (136-145); UREA NITROGEN 18 mg/dL (7-18); eGFR NON AFRICAN AMERICAN 75 mL/min (90-120)
--- NOTE | 2018-12-27 10:55 | NUR ---
PATIENT ARRIVED TO ROOM 7, PLACED ON CM. VSS. RIGHT TR BAND IN PLACE, NO S/S OF BLEEDING OR HEMATOMA.
[2018-12-27] MEDS ORDERED: PLAVIX75 MG PO (10:59)
--- NOTE | 2018-12-27 11:10 | NUR ---
PATIENT RESTING, FAMILY AT BEDSIDE. VSS ON 2L NC. RIGHT TR BAND IN PLACE, NO S/S OF BLEEDING OR HEMATOMA. NO C/O PAIN, NUMBNESS, OR ITNLING.
--- NOTE | 2018-12-27 11:40 | NUR ---
PATIENT RESTING, VSS ON 1L NC. RIGHT TR BAND IN PLACE, NO S/S OF BLEEDING OR HEMATOMA. FAMILY PRESENT AT BEDSIDE. NO N/V. NO C/O PAIN, NUMBNESS, OR TINGLING.
--- NOTE | 2018-12-27 12:10 | NUR ---
PATIENT INTERMITTENTLY RESTING, HEAD OF BED AT 60 DEGREES. RIGHT TR BAND IN PLACE, NO S/S OF BLEEDING OR HEMATOMA. NO C/O PAIN, NUMBNESS, OR TINGLING. FAMILY PRESENT AT BEDSIDE.
--- NOTE | 2018-12-27 12:40 | NUR ---
PATIENT RESTING, HEAD OF BED AT 60 DEGREES. FAMILY PRESENT AT BEDSIDE. VSS ON 1L NC. RIGHT TR BAND IN PLACE, NO S/S OF BLEEDING OR HEMATOMA.
--- NOTE | 2018-12-27 13:10 | NUR ---
PATIENT AWAKE, SITTING UP IN BED. VSS ON ROOM AIR. RIGHT TR BAND IN PLACE, NO S/S OF BLEEDING OR HEMATOMA. NO C/O PAIN, NUMBNESS, OR TINGLING. FAMILY PRESENT AT BEDSIDE.
--- NOTE | 2018-12-27 13:40 | NUR ---
BEGIN AIR REMOVAL PROTOCOL, 3CC OF AIR REMOVED FROM TR BAND, NO S/S OF BLEEDING OR HEMATOMA. NO C/O PAIN, NUMBNESS, OR TINGLING. VSS ON ROOM AIR. WILL CONTINUE TO MONITOR.
--- NOTE | 2018-12-27 14:10 | NUR ---
4CC OF AIR REMOVED FROM TR BAND, NO S/S OF BLEEDING OR HEMATOMA. IV REMOVED. VSS ON ROOM AIR. FAMILY PRESENT AT BEDSIDE.
--- NOTE | 2018-12-27 14:40 | NUR ---
RIGHT RADIAL DRESSING IN PLACE IS CDI, NO S/S OF BLEEDING OR HEMATOMA. WRITTEN AND VERBAL EDUCATION REGARDING DISCHARGE INSTRUCTIONS GIVEN TO PATIENT AND , BOTH VOICE UNDERSTANDING. NO C/O PAIN, NUMBNESS, OR TINGLING. PATIENT VOIDED WITHOUT DIFFICULTY.
--- NOTE | 2018-12-27 14:45 | NUR ---
PATIENT TRANSPORTED VIA WHEELCHAIR TO CAR WITH SPOUSE DRIVING, ALL BELONGINGS WITH PATIENT.
== END 2018-12-27 14:45 ==
LOC: D.CATH 07:54
PROVIDERS: ATTEND Internal Medicine Interventional Cardiology
DX: I25.119 Atherosclerotic heart disease of native coronary artery with unspecified angina pectoris (principal); R94.39 Abnormal result of other cardiovascular function study

== ENCOUNTER 2019-02-12 08:37 | Emergency (ER) | payer BC ==
[~2019-02-12] VITALS: Ht 170.2 cm; Wt 66.8 kg
[~2019-02-12 08:37] MED LIST changes: +ISOSORBIDE MONO30 M1 PO; +NITROSTAT0.4 MG SL
[2019-02-12 08:42] VITALS: Ht 170.2 cm; Wt 66.8 kg
[2019-02-12] MEDS ORDERED: ZOCOR10 MG PO (08:44)
[2019-02-12 09:08] LABS: BASOPHILS 0.4 % (0-2); EOSINOPHILS 3.2 % (0-7); HEMATOCRIT 39.2 % (42.0-54.0); HEMOGLOBIN 13.7 g/dL (13.5-17.5); IMMATURE GRANULOCYTES 0.2 % (0-5); LYMPHOCYTES 27.5 % (15-50); MCH 31.9 pg (26.0-34.0); MCHC 34.9 g/dL (31.0-37.0); MCV 91.4 fL (80.0-100.0); MEAN PLATELET VOLUME 9.6 fL (7.4-10.4); MONOCYTES 8.7 % (2-11); PLATELET COUNT 173 10x3/uL (130-400); RBC 4.29 10x6/uL (4.20-6.10); RDW 12.8 % (11.5-14.5); WBC 4.6 10x3/uL (4.8-10.8)
[2019-02-12 09:12] LABS: APTT 26.1 SECONDS (22.8-39.4); INR 1.02 (0.85-1.17); PROTIME 12.9 SECONDS (11.6-15.0)
[2019-02-12 09:14] LABS: ALBUMIN 3.7 g/dL (3.4-5.0); ALKALINE PHOSPHATASE 68 U/L (46-116); ALT (SGPT) 42 U/L (10-68); BILIRUBIN - TOTAL 0.38 mg/dL (0.2-1.3); CALC OSMOLALITY 280 mosm/kg (275-300); CALCIUM 8.9 mg/dL (8.5-10.1); CARBON DIOXIDE 27.1 mmol/L (21.0-32.0); CHLORIDE - SERUM 105 mmol/L (98-107); CREATININE - SERUM 1.2 mg/dL (0.6-1.3); GLUCOSE 98 mg/dL (74-106); POTASSIUM - SERUM 3.7 mmol/L (3.5-5.1); PROTEIN - SERUM 6.9 g/dL (6.4-8.2); SODIUM 141 mmol/L (136-145); UREA NITROGEN 13 mg/dL (7-18); eGFR NON AFRICAN AMERICAN 68 mL/min (90-120)
[2019-02-12 09:26] LABS: CKMB 4.3 U/L (0.0-3.6); CREATINE KINASE 354 UL (21-232); MAGNESIUM - SERUM 2.1 mg/dL (1.8-2.4)
[2019-02-12 09:34] LABS: TROPONIN-I < 0.017 ng/mL (0.000-0.060)
[2019-02-12 11:44] LABS: CKMB 3.9 U/L (0.0-3.6); CREATINE KINASE 334 UL (21-232)
[2019-02-12 11:45] LABS: TROPONIN-I < 0.017 ng/mL (0.000-0.060)
[2019-02-12 12:31] VITALS: BP 112/80
== END 2019-02-12 12:33 | disposition home or self-care (01) ==
LOC: D.ER 08:37
PROVIDERS: Family Medicine
DX: I20.9 Angina pectoris, unspecified (principal); I25.10 Atherosclerotic heart disease of native coronary artery without angina pectoris

== ENCOUNTER 2019-06-19 06:56 | Outpatient (CLI) | payer BC ==
[~2019-06-19] VITALS: Ht 170.2 cm; Wt 65.9 kg
--- NOTE | ~2019-06-19 | OP ---
PATIENT NAME: MONTSERRAT MAYO MEDICAL RECORD: [id number] :69 LOCATION:D.CAT ADMISSION DATE: SURGEON: MULU QUIJANO MD DATE OF OPERATION: 06/19/2019 PROCEDURES: 1. PTCA and stent of LAD diagonal. 2. IFR of LAD diagonal. 3. Left heart catheterization. 4. Selective coronary angiography. 5. Left ventriculogram. INDICATIONS: Angina and coronary artery disease. PROCEDURE IN DETAIL: After informed consent was obtained and after a detailed explanation of the risks, benefits as well as alternative therapies, the patient elected to proceed with angiogram and angioplasty. The right radial area was prepped and draped in normal sterile fashion. Right radial artery was cannulated via modified Seldinger technique with placement of 6-Wolof sheath. All catheters exchanged this sheath. FINDINGS: Left ventriculogram was performed in standard 30-degree SALGADO view, reveals good cardiac wall motion throughout all segments. Overall ejection fraction estimated 60%. SELECTIVE CORONARY ANGIOGRAPHY: 1. Left main has no significant angiographic disease. 2. Left anterior descending has stents in the LAD and LAD diagonal. The diagonal stents do not appear to come all the way to the ostium. There is 80% stenosis at the ostium with an abnormal IFR in the LAD diagonal. 3. Left circumflex has mild irregularities, but no flow-limiting stenosis. This is a dominant vessel. 4. Right coronary is small, nondominant with no significant stenosis. PTCA AND STENT OF THE LAD DIAGONAL: The stent used was a 2.5 x 12-mm Cobra. Result was 0% residual stenosis. OVERALL IMPRESSION: Successful PTCA and stent of the LAD diagonal going from 80% initial stenosis to 0% residual. TRANSINT:[id number] Voice Confirmation ID: [id number] DOCUMENT ID: [id number] MULU QUIJANO MD CC: [id number] DICTATION DATE: 06/19/19919 OPERATOR: 06/19/19 1225 [id number] [place] [address]
--- NOTE | ~2019-06-19 | HEMODYNAMI ---
PATIENT:MONTSERRAT MAYO MEDICAL RECORD: [id number] : 69 LOCATION:[facility] ADMISSION DATE: 06/19/19 Generatedon:06/19/20199:18 Patient name: MONTSERRAT MAYO Patient #: [id number] SSN: [id number] : 1965 Date of study: 06/19/2019 Page: Of Hemodynamic Procedure Report Patient Data Patient Demographics Procedure consent was obtained First Name: MONTSERRAT Gender: Male Last Name: MARIA ESTHER : 1965 Middle Initial: A Age: 53 year(s) Patient #: [id number] Race: Unknown SSN: [id number] Additional ID: [id number] Contact details Address: [address] [place] [address] State: [place] City: [place] Zip code: [address] Past Medical History Allergies: No known allergies Admission Admission Data Admission Date: 06/19/2019 Admission Time: 6:56 Arrival Date: 06/19/2019 Arrival Time: 0:00 Admit Source: Other Insurance Payor: Private health insurance [facility] #: [id number] Height (in.): 66.93 BSA: 1.75 (m2) Height (cm.): 170 BMI: 22.49 (kg/m2) Weight (lbs.): 143.3 Weight (kg.): 65 Lab Results Lab Result Date: 06/19/2019 Lab Result Time: 0:00 Biochemistry Name Units Result Min Max BUN mg/dl 13 --(--*-)-- 7 18 Creatinine mg/dl 1 --(--*-)-- 0.6 1.3 eGFR ml/min 84 -*(----)-- 90 120 NONAFRICAN CBC Name Units Result Min Max Hemoglobin g/dl 13.5 --(*---)-- 13.5 17.5 Procedure Procedure Types Cath Procedure Diagnostic Procedure C LHC w/Coronaries FFR/IVUS FFR Initial Sedation Charges Moderate Sedation up to 30 minutes PCI Procedure Coronary Stent Coronary Stent Initial Hemochron ACT Test Procedure Description Procedure Date Procedure Date: 06/19/2019 Procedure Start Time: 8:59 Procedure End Time: 9:15 Procedure Staff Name Function Valentin Gomez MD Performing Physician Kelsie Louis RN Nurse Adalgisa Bojorquez RT Scrub Марина Little RT Monitor Indication Fatigue Dyspnea with exertion Procedure Data Cath Procedure Fluoroscopy Diagnostic fluoroscopy Total fluoroscopy Time: 3.7 time: 3.7 min min Diagnostic fluoroscopy Total fluoroscopy dose: 481 dose: 481 mGy mGy Contrast Material Contrast Material Type Amount (ml) Isovue 300 73 Entry Location Entry Primary Successful Side Size Upsize Upsize Entry Closure Estrella ccessful Closure Location (Fr) 1 (Fr) 2 (Fr) Remarks Device Remarks Radial Right 6 Fr Mechanical artery Short Compression Estimated blood loss: 5 ml Diagnostic catheters Device Type Used For End Catheter Placement DIAGNOSTIC Landers 110cm 5 Procedure Fr catheter ([id number]) Procedure Complications No complications Procedure Medications Medication Administration Route Dosage Oxygen etCO2 Nasal cannula 2 l/min Lidocaine 2% added to field 20 Heparin Flush Bag added to field 2 bags (1000units/500ml NS) 0.9% NaCl I.V. 100 ml/hr Radial Cocktail I.A. 1 syringe (Verapamil 2mg/Nitro 400mcg/Heparin 1500units) Versed I.V. 2 mg Fentanyl I.V. 100 mcg Versed I.V. 1 mg Fentanyl I.V. 50 mcg Heparin Bolus I.V. 4000 units Integrilin (Bolus I.V. 6.2 ml 2mg/ml) Plavix P.O. 600 mg Hemodynamics Rest BSA: 1.75 (m2) HGB: 13.5 (g/dl) O2 Consumption: Estimated: 192.65 (ml/min) O2 Co nsumption indexed: Estimated:110.09 (ml/min/m) Heart Rate: 45 (bpm) Snapshots Pre Cath Intra NCS Post Cath Vital Signs Time Heart Resp SPO2 etCO2 NIBP Rhythm Pain Sedation Rate (ipm) (%) (mmHg) (mmHg) Status Level (bpm) 8:25:12 47 17 98 39.9 96/61(77) SB 0 (11) 10(A) , No pain 8:29:14 46 10 96 36.8 101/72(83) SB 0 (11) 10(A) , No pain 8:33:19 46 12 98 43.7 97/64(72) SB 0 (11) 10(A) , No pain 8:37:21 54 10 98 36.1 106/72(91) SB 0 (11) 10(A) , No pain 8:41:25 49 11 98 38.4 109/78(92) SB 0 (11) 10(A) , No pain 8:45:29 49 10 98 38.4 105/80(90) SB 0 (11) 10(A) , No pain 8:49:30 47 11 97 38.4 109/76(95) SB 0 (11) 10(A) , No pain 8:53:36 48 17 98 28.6 103/75(84) SB 0 (11) 10(A) , No pain 8:57:38 51 18 98 40.7 102/75(85) SB 0 (11) 10(A) , No pain 9:01:46 59 16 97 35.4 99/56(63) SB 0 (11) 9(A) , No pain 9:05:47 59 15 94 36.9 109/73(87) SB 0 (11) 9(A) , No pain 9:09:51 54 15 94 54.2 110/77(97) SB 0 (11) 9(A) , No pain 9:13:53 55 16 95 39.9 118/85(93) SB 0 (11) 10(A) , No pain Medications Time Medication Route Dose Verified Delivered Reason Note s Effectiveness by by 8:23:39 Oxygen etCO2 2 l/min Valentin Iglesias used for Nasal Jason Louis RN procedure cannula 8:23:45 Lidocaine 2% added 20ml Valentin Hanson for local to vial Jason Gomez MD anesthetic field 8:23:51 Heparin Flush added 2 bags Valentin Hanson used for Bag to Jason Gomez MD procedure (1000units/500ml field NS) 8:23:58 0.9% NaCl I.V. 100 Valentin Iglesias Per physician ml/hr Jason Louis RN 9:00:20 Radial Cocktail I.A. 1 Valentin Hanson for (Verapamil syringe Jason Gomez MD vasodilation 2mg/Nitro 400mcg/Heparin 1500units) 9:00:27 Versed I.V. 2 mg Valentin Huangie for sedation Jason Louis RN 9:00:32 Fentanyl I.V. 100 mcg Valentin Iglesias for sedation Jason Louis RN 9:06:44 Versed I.V. 1 mg Valentin Iglesias for sedation Jason Louis RN 9:06:49 Fentanyl I.V. 50 mcg Valentin Iglesias for sedation Jason Louis RN 9:09:08 Heparin Bolus I.V. 4000 Valentin Iglesias for veri fied units Jason Louis RN anticoagulation with dr gomez 9:10:34 Integrilin I.V. 6.2 ml Valentin Iglesias for wast ed (Bolus 2mg/ml) Jason Louis RN antiplatelet 3.8 ml therapy of vial 9:15:44 Plavix P.O. 600 mg Valentin Iglesias for Jason Louis RN antiplatelet therapy Procedure Log Time Note 7:45:36 Kelsie Louis RN sent for patient. Start room use. 8:07:41 Arrival Date: 06/19/2019 12:00:00 AM 8:08:01 Admit Source: Other 8:08:05 Insurance Payor : Private health insurance 8:08:10 Patient Height : 66.93 inches 8:08:15 Patient Weight : 143.3 lbs 8:08:50 Lab Result : eGFR NONAFRICAN 84 ml/min 8:08:50 Lab Result : Hemoglobin 13.5 g/dl 8:08:50 Lab Result : BUN 13 mg/dl 8:08:50 Lab Result : Creatinine 1 mg/dl 8:09:22 Procedure Status Elective Heart Cath (OP). 8:09:30 Time tracking: Regular hours (M-F 7:00 - 5:00) 8:09:36 Plan of Care:Hemodynamics will remain stable., Cardiac rhythm will remain stable., Comfort level will be maintained., Respiratory function will remain adequate., Patient/ family verbilizes understanding of procedure., Procedure tolerated without complication., Recovers from procedure without complications.. 8:09:46 Patient received from Pre/Post Procedure Room to CCL 2 Alert and oriented. Tansferred to table in Supine position. 8:09:55 Signed procedure consent form obtained from patient. 8:09:56 Warm blankets applied, and xavi hugger turned on for patient comfort. 8:10:04 Correct patient and procedure confirmed by team. 8:10:36 H&P Date Dictated: 06/14/2019 Within 30 days and on chart., H&P Addendum completed by physician on day of procedure. (MUST COMPLETE FOR ALL OUTPATIENTS). 8:10:43 Family in waiting room. 8:10:46 Patient NPO since Midnight. 8:10:52 Patient allergic to No known allergies 8:10:56 Is the patient allergic to Iodine/contrast media? No. 8:10:57 Was the patient premedicated? Yes 8:10:59 Is patient on blood thinner?No 8:23:39 Oxygen 2 l/min etCO2 Nasal cannula was administered by Kelsie Louis RN; used for procedure; Verbal order read back and verified. 8:23:45 Lidocaine 2% 20ml vial added to field was administered by Valentin Gomez MD; for local anesthetic; Verbal order read back and verified. 8:23:51 Heparin Flush Bag (1000units/500ml NS) 2 bags added to field was administered by Valentin Gomez MD; used for procedure; Verbal order read back and verified. 8:23:58 0.9% NaCl 100 ml/hr I.V. was administered by Kelsie Louis RN; Per physician; Verbal order read back and verified. 8:24:03 Vital chart was started 8:24:31 Baseline sample Acquired. 8:24:36 Rhythm: sinus rhythm 8:24:38 Full Disclosure recording started 8:25:36 Snore? No 8:25:38 Sleep apnea? No 8:26:35 Dentures? No ? 8:27:36 Patient pain scale 0/10 ?. 8:27:42 IV patent on arrival in left forearm with 0.9% NaCl at [facility]. 8:27:47 Lab results completed and on chart. 8:29:38 Right Radial & Right Groin area was prepped with chlora-prep and draped in sterile fashion 8:29:40 Alarms reviewed by R. N. 8:29:41 Sharps counted by scrub and verified by R.N. 8:29:45 Physician paged 8:42:26 Indication : Fatigue 8:42:40 Indication : Dyspnea with exertion 8:45:55 Risk of Mortality: .1 8:45:57 Risk of blood transfusion: .1 8:46:01 Risk of JOHNNIE: .3 8:46:17 Patient diabetic? No. 8:50:39 Zero performed for pressure channel P1 8:54:00 2) 60-89 Mildly reduced kidney function, and other findings (as for stage 1) point to kidney disease. 8:54:17 Maximum allowable contrast dose (3.7 X eGFR X 0.75)233 ml. 8:58:15 Physician arrived 8:58:16 --------ALL STOP TIME OUT------ 8:58:16 Final Timeout: patient, procedure, and site verified with staff and physician. All members of the team are in agreement. 8:58:18 Right Radial & Right Groin site verified by team. 8:58:22 Fire Safety Assessment: A--An alcohol-based skin anteseptic being used preoperatively., C--Open oxygen or nitrous oxide is being used., D--An ESU, laser, or fiber-optic light is being used. 8:58:36 Sedation plan: IV Moderate Sedation Medication:Versed, Fentanyl 8:58:41 Use device set Radial Dx or PCI 8:58:44 Procedure started. 8:58:51 ACIST Syringe (30157) opened to sterile field. 8:58:52 Medline Cath Pack ([id number]) opened to sterile field. 8:58:52 Bag Decanter (2002) opened to sterile field. 8:58:53 ACIST Hand Control (22910) opened to sterile field. 8:58:53 ACIST Manifold (41209) opened to sterile field. 8:58:54 Tegaderm 4 x 4 (1626W) opened to sterile field. 8:58:55 MBrace Wrist Support ([id number]) opened to sterile field. 8:58:59 EMERALD Guide Wire (888-169) opened to sterile field. 8:59:01 SHEATH 6FR RAIN (2783509) opened to sterile field. 8:59:11 Local anesthetic to right radial artery with Lidocaine 2% by Valentin Gomez MD.INITIAL ACCESS ONLY 8:59:21 A 6 Fr Short sheath was inserted into the Right Radial artery 8:59:27 j wire advanced. 8:59:42 A DIAGNOSTIC Landers 110cm 5 Fr catheter (211644) was advanced over the wire and used for Procedure. 8:59:58 LV angiography performed. 9:00:20 Radial Cocktail (Verapamil 2mg/Nitro 400mcg/Heparin 1500units) 1 syringe I.A. was administered by Valentin Gomez MD; for vasodilation; Verbal order read back and verified. 9:00:27 Versed 2 mg I.V. was administered by Kelsie Louis RN; for sedation; Verbal order read back and verified. 9:00:32 Fentanyl 100 mcg I.V. was administered by Kelsie Louis RN; for sedation; Verbal order read back and verified. 9:01:41 EF : 60 % 9:02:01 RCA angiography performed. 9:02:38 Catheter removed. 9:02:49 GUIDE 6FR XBC 3 (57731715) opened to sterile field. 9:03:58 Catheter removed. 9:04:00 Catheter exchanged over wire. 9:04:28 GUIDE 6FR XBLAD 3.5 catheter (19796215) opened to sterile field. 9:04:43 LCA angiography performed. 9:06:42 Lomb[place] Verrata Plus pressure wire (58333Y) opened to sterile field. 9:06:43 INFLATOR Merit BasixCompak (OK4307) opened to sterile field. 9:06:44 Versed 1 mg I.V. was administered by Kelsie Louis RN; for sedation; Verbal order read back and verified. 9:06:49 Fentanyl 50 mcg I.V. was administered by Kelsie Louis RN; for sedation; Verbal order read back and verified. 9:07:07 FFR/IFR wire advanced. 9:08:25 Diag1 lesion measured at .89 with IFR 9:08:58 Pre PCI Site: [place] Diag1 has 80% stenosis. 9:09:08 Heparin Bolus 4000 units I.V. was administered by Kelsie Louis RN; for anticoagulation; verified with dr gomez Verbal order read back and verified. 9:10:34 Integrilin (Bolus 2mg/ml) 6.2 ml I.V. was administered by Kelsie Louis RN; for antiplatelet therapy; wasted 3.8 ml of vial Verbal order read back and verified. 9:11:36 Place stent Inflation Number: 1 A COBRA RX 2.5 X 12 Stent was prepped and advanced across the 1st Diag 80. The stent was deployed at 21 JUAN CARLOS for 0:09 (min:sec) 0. 9:12:31 ZEPHYR REGULAR TR BAND (143192) opened to sterile field. 9:12:42 Wire removed. 9:12:42 Guide catheter removed. 9:12:52 Sheath removed intact; hemostasis achieved with Mechanical Compression to the Right Radial artery. 9:12:54 Procedure ended.(Physican Out) 9:13:04 Fluoroscopy time 03.70 minutes. 9:13:08 Flurop Dose total: 481 9:13:08 Fluoroscopy dose: 481 mGy 9:13:15 Dose Area Product 79083 mGy/cm. 9:13:21 Contrast amount:Isovue 300 73ml. 9:13:24 Maximum allowable dose exceeded? No. 9:13:25 Sharps counted by scrub and verified by R.N. 9:13:29 [place] band inflated with 10cc of air. 9:13:31 Insertion/operative site no bleeding no hematoma. 9:13:34 Post Procedure Pulses reassessed and unchanged 9:13:40 Post-procedure physical assessment completed. ASA score P 3 - A patient with severe systemic disease as per Valentin Gomez MD. 9:13:45 Post procedure rhythm: unchanged. 9:13:49 Estimated blood loss: 5 ml 9:13:50 Post procedure instruction explained to patient.Patient verbalizes understanding. 9:14:25 Procedure type changed to Cath procedure, Diagnostic procedure, LHC, C w/Coronaries, FFR/IVUS, FFR Initial, Sedation Charges, Moderate Sedation up to 30 minutes, PCI procedure, Coronary Stent, Coronary Stent Initial, Hemochron ACT Test 9:14:27 Procedure and supply charges have been captured, reviewed, submitted and are correct. 9:14:54 Procedure Complication : No complications 9:14:57 Vital chart was stopped 9:15:00 [facility] Findings: MVD- PCI performed (see procedure note) 9:15:05 Operative report dictated upon procedure completion. 9:15:09 See physician's report for complete and final results. 9:15:11 Report given to Pre/Post Procedure Room. 9:15:16 Patient transfered to Pre/Post Procedure Room with Stretcher. 9:15:18 Procedure ended. 9:15:18 Full Disclosure recording stopped 9:15:25 End room use (Document Last) 9:15:29 ACC-PCI Only Patient was given prescriptions, or instructed by Valentin Gomez MD to start/continue the following medications upon discharge: Plavix 9:15:44 Plavix 600 mg P.O. was administered by Kelsie Louis RN; for antiplatelet therapy; Verbal order read back and verified. 9:17:42 ACT drawn and resulted at 343 seconds. (normal therapeutic range 180-240 seconds). Intervention Summary Intervention Notes Time ActionType Lesion and Equipment Action# Pressure Duration Attributes Used 9:11:36 Place stent 1st Diag COBRA RX 1 21 00:09 2.5 X 12 Stent Device Usage Item Name Manufacture Quantity Catalog Hospital Part Current Minimal Lot# / Number Charge Number Stock Stock Serial# Code ACIST Syringe Acist 1 46156 [id number] 165873 133607 20 (61537) Medical Systems Inc Medline Cath Medline 1 [id number] 013056 31904 867888 5 Pack ([id number]) Bag Decanter Microtek 1 2002S 012672 25851 549956 5 (2002S) Medical Inc. ACIST Hand Acist 1 16109 311621 938068 647465 5 Control Medical (65900) Systems Inc ACIST Manifold Acist 1 64744 137216 544872 802873 5 (54479) Medical Systems Inc Tegaderm 4 x 4 3M 1 1626W 750650 889371 850337 5 (1626W) MBrace Wrist Advanced 1 140-0250-00 364560 85803 469172 5 Support Vascular ([id number]) Dynamics EMERALD Guide Cardinal 1 502-455 635587 704604 233657 5 Wire (502-455) Health SHEATH 6FR Cardinal 1 8548256 784548 4724735 603447 5 RAIN (1235262) Health DIAGNOSTIC Terumo 1 40-1373 964080 241851 596819 5 Landers 110cm 5 Fr catheter (969555) GUIDE 6FR XBC Cardinal 1 [id number] 490569 25979 555158 5 3 ([id number]) Health GUIDE 6FR Cardinal 1 52918872 805505 203443 218675 10 XBLAD 3.5 Health catheter (98304629) Lombard [place] 1 70880G 721499 236221479 810284 5 Verrata Plus pressure wire (91215R) INFLATOR Merit Merit 1 FL2905 022735 692459 582606 15 [facility] ([id number]) COBRA RX 2.5 X Celonova 1 168-82-22473 004458 [id number] [id number] 7 3 [id number] 12 stent Biosciences (216-60-95753) ZEPHYR REGULAR Cardinal 1 176949 808424 4027340 878308 5 [facility] (677717) Signature Audit [place] Stage Time Signature Unsigned Intra-Procedure 06/19/2019 Марина Little 9:16:06 AM RT(R) Intra-Procedure 06/19/2019 Kelsie Louis RN 9:16:59 AM Intra-Procedure 06/19/2019 Valentin Gomez 9:18:05 AM Signatures Performing Physician : Signature : Valentin Gomez MD Date : Time : Nurse : Kelsie Louis RN Signature : Date : Time : Monitor : Марина Little Signature : RT Date : Time : [address] [address]
[~2019-06-19 06:56] MED LIST changes: +ZOCOR10 MG PO
[2019-06-19] MEDS ORDERED: ISOSORBIDE MONO30 M1 PO (07:08)
[2019-06-19 07:20] VITALS: BP 111/70; Ht 170.2 cm; Wt 65.9 kg
[2019-06-19 07:40] LABS: BASOPHILS 0.5 % (0-2); EOSINOPHILS 4.2 % (0-7); HEMATOCRIT 39.9 % (42.0-54.0); HEMOGLOBIN 13.5 g/dL (13.5-17.5); IMMATURE GRANULOCYTES 0.2 % (0-5); LYMPHOCYTES 34.6 % (15-50); MCH 32.1 pg (26.0-34.0); MCHC 33.8 g/dL (31.0-37.0); MCV 94.8 fL (80.0-100.0); MEAN PLATELET VOLUME 9.4 fL (7.4-10.4); MONOCYTES 10.7 % (2-11); NEUTROPHILS 49.8 % (40-80); PLATELET COUNT 191 10x3/uL (130-400); RBC 4.21 10x6/uL (4.20-6.10); WBC 4.3 10x3/uL (4.8-10.8)
[2019-06-19 07:44] LABS: ALT (SGPT) 44 U/L (10-68); CALC OSMOLALITY 275 mosm/kg (275-300); CALCIUM 8.7 mg/dL (8.5-10.1); CARBON DIOXIDE 25.9 mmol/L (21.0-32.0); CHLORIDE - SERUM 105 mmol/L (98-107); CHOL - HDL RATIO 6.7 ratio (2.3-4.9); CHOLESTEROL, TOTAL 200 mg/dL (0-200); GLUCOSE 94 mg/dL (74-106); HDL CHOLESTEROL 30 mg/dL (32-96); LDL CHOLESTEROL 137 mg/dL (0-100); LDL-HDL RATIO 4.6 ratio (1.5-3.5); POTASSIUM - SERUM 3.8 mmol/L (3.5-5.1); SODIUM 138 mmol/L (136-145); TRIGLYCERIDE 167 mg/dL (30-200); UREA NITROGEN 13 mg/dL (7-18); eGFR NON AFRICAN AMERICAN 84 mL/min (90-120)
--- NOTE | 2019-06-19 09:35 | NUR ---
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 R WRIST Z BAND CDI, NO BLEEDING/HEMATOMA. ROUSES TO VERBAL. MONITORING INITIATED. CALL LIGHT IN HAND. FAMILY AT BEDSIDE.
--- NOTE | 2019-06-19 09:55 | NUR ---
R WRIST CDI, Z BAND AND IMMOBILIZER. RAD PULSE PALPATED. FINGERS WARM. SLEEPING, ROUSES TO VERBAL.
--- NOTE | 2019-06-19 10:10 | NUR ---
R RADIAL CDI, ZBAND, IMMOBILIZER. RAD PULSE PALPATED. FINGERS WARM. ROUSES TO VERBAL. DENIES NEEDS. AT BEDSIDE.
--- NOTE | 2019-06-19 10:25 | NUR ---
RIGHT RADIAL ZBAND, IMMOBILIZER. PULSE PALPABLE. FINGERS WARM. ROUSES TO VERBAL, DENIES NEEDS. HR 47 SB, RR 11, SAT 100% ON 2LNC. BP 104/70. AT BEDSIDE.
--- NOTE | 2019-06-19 10:41 | NUR ---
R RADIAL ZBAND, IMMOBILIZER. PULSE PALPABLE. FINGERS WARM. HR 46, RR 12, SAT 100% ON 2LNC, BP 104/70. FAMILY AT BEDSIDE.
--- NOTE | 2019-06-19 11:09 | NUR ---
R RADIAL ZBAND,IMMOBILIZER CDI. PULSE PALPABLE. HR SB 48, BP 105/72, RR 12, SAT 99% 2LNC. WIGGLES FINGERS. DENIES NEEDS.
[2019-06-19] MEDS ORDERED: PLAVIX75 MG PO (11:17)
--- NOTE | 2019-06-19 11:42 | NUR ---
R RADIAL CDI, NO BLEEDING/HEMATOMA. HR 49 SB, RR 13 SAT 99% 2LNC, 101/69 BP. NO COMPLAINTS. FAMILY AT BEDSIDE.
--- NOTE | 2019-06-19 12:10 | NUR ---
R WRIST ZBAND, IMMOBILIZER. NO BLEEDING OR HEMATOMA NOTED. REMOVED 2ML AIR ZBAND, NO BLEEDING OR HEMATOMA NOTED. SANDWICH PROVIDED, JUICE. HR SB 57, BP 106/72, SAT 98% RA, RR 14. FAMILY AT BEDSIDE.
--- NOTE | 2019-06-19 12:32 | NUR ---
3ML AIR REMOVED FROM ZBAND R WRIST. NO BLEEDING/HEMATOMA. CONT TO MONITOR.
--- NOTE | 2019-06-19 12:45 | NUR ---
2ML AIR REMOVED FROM TR BAND TOTAL OF 7ML OUT. NO BLEEDING/HEMATOMA R WRIST. PULSE PALPABLE. HR 51,SB BP 103/69, SAT 99% RA. AWAKE AND ALERT VISITING WITH FAMILY. DENIES NEEDS. SHALINI SANDWICH AND JUICE WITHOUT NAUSEA.
--- NOTE | 2019-06-19 13:00 | NUR ---
2ML AIR REMOVED FROM ZBAND R RADIAL. NO BLEEDING/HEMATOMA. IV REMOVED, TIP INTACT. MONITORING DISCONTINUED. PT DRESSING WITH ASSISTANCE OF , ZBAND AND IMMOBILIZER IN PLACE TO R WRIST.
--- NOTE | 2019-06-19 13:10 | NUR ---
ZBAND REMOVED, NO BLEEDING/HEMATOMA. DRESSED SITE W 2X2 AND SMALL TEGADERM. DISCHARGE TEACHING WITH PT AND . IMMOBILIZER ON TO R ARM PER PT REQUEST REMINDER OF NO USE OF ARM.
--- NOTE | 2019-06-19 13:20 | NUR ---
R WRIST REMAINS CDI, SOFT, NO BLEEDING OR HEMATOMA. PT DC HOME W VIA WHEELCHAIR TO PRIVATE CAR. HAS ALL BELONGINGS AND PRESCRIPTION FOR PLAVIX IN HAND.
== END 2019-06-19 13:20 ==
LOC: D.CATH 06:56
PROVIDERS: ATTEND Internal Medicine Interventional Cardiology
DX: I25.119 Atherosclerotic heart disease of native coronary artery with unspecified angina pectoris (principal); R06.09 Other forms of dyspnea; E78.5 Hyperlipidemia, unspecified; R07.9 Chest pain, unspecified

== ENCOUNTER → 2019-09-08 14:53 | Outpatient (CLI) | payer BC ==
[2019-06-19 07:20] VITALS: BMI 22.7
[2019-09-08 15:34] LABS: CHOL - HDL RATIO 5.8 ratio (2.3-4.9); LDL-HDL RATIO 3.9 ratio (1.5-3.5)
== END | disposition home or self-care (01) ==
LOC: D.LABREF 14:53
PROVIDERS: ATTEND Nurse Practitioner Adult Health
DX: I25.10 Atherosclerotic heart disease of native coronary artery without angina pectoris (principal)

== ENCOUNTER → 2020-01-01 10:21 | Outpatient (CLI) | payer BC ==
[2019-06-19 07:20] VITALS: BMI 22.7
== END | disposition home or self-care (01) ==
LOC: D.HCCARDIO 10:00
PROVIDERS: ATTEND Internal Medicine Cardiovascular Disease
DX: I25.10 Atherosclerotic heart disease of native coronary artery without angina pectoris (principal)

== ENCOUNTER 2020-01-23 07:03 | Outpatient (CLI) | payer BC ==
[~2020-01-23] VITALS: Ht 170.2 cm; Wt 69.8 kg
--- NOTE | ~2020-01-23 | HEMODYNAMI ---
PATIENT:MONTSERRAT MAYO MEDICAL RECORD: [id number] : 69 LOCATION:[facility] ADMISSION DATE: 01/23/20 Generatedon:01/23/20209:53 Patient name: MONTSERRAT MAYO Patient #: [id number] SSN: [id number] : 1965 Date of study: 01/23/2020 Page: Of Hemodynamic Procedure Report Patient Data Patient Demographics Procedure consent was obtained First Name: MONTSERRAT Gender: Male Last Name: MARIA ESTHER : 1965 Middle Initial: A Age: 54 year(s) Patient #: [id number] Race: SSN: [id number] Additional ID: [id number] Contact details Address: [address] [place] [address] State: [place] City: [place] Zip code: [address] Past Medical History Allergies: No known allergies Admission Admission Data Admission Date: 01/23/2020 Admission Time: 7:03 Arrival Date: 01/23/2020 Arrival Time: 0:00 Insurance Payor: Private health insurance Height (in.): 66.93 BSA: 1.81 (m2) Height (cm.): 170 BMI: 24.22 (kg/m2) Weight (lbs.): 154.32 Weight (kg.): 70 Lab Results Lab Result Date: 01/23/2020 Lab Result Time: 0:00 Biochemistry Name Units Result Min Max BUN mg/dl 15 --(--*-)-- 7 18 Creatinine mg/dl 1.3 --(---*)-- 0.6 1.3 eGFR ml/min 61.01142 *-(----)-- 90 120 NONAFRICAN CBC Name Units Result Min Max Hematocrit % 38.7 *-(----)-- 42 54 Hemoglobin g/dl 13.1 -*(----)-- 13.5 17.5 Procedure Procedure Types Cath Procedure Diagnostic Procedure C [facility] w/Coronaries Sedation Charges Moderate Sedation up to 30 minutes Procedure Description Procedure Date Procedure Date: 01/23/2020 Procedure Start Time: 9:28 Procedure End Time: 9:51 Procedure Staff Name Function Yuriy Aguilar MD Performing Physician Марина Little RT Monitor Debbie Fritz RT Blender Conveyor Operator Mana Valdez RN Nurse Adalgisa Bojorquez RT Scrub Indication Abnormal stress treadmill study Procedure Data Cath Procedure Fluoroscopy Diagnostic fluoroscopy Total fluoroscopy Time: 1.6 time: 1.6 min min Diagnostic fluoroscopy Total fluoroscopy dose: 361 dose: 361 mGy mGy Contrast Material Contrast Material Type Amount (ml) Isovue 300 61 Entry Location Entry Primary Successful Side Size Upsize Upsize Entry Closure Succes sful Closure Location (Fr) 1 (Fr) 2 (Fr) Remarks Device Remarks Femoral Right 5 Fr Exoseal artery Estimated blood loss: 10 ml Diagnostic catheters Device Type Used For End Catheter Placement MULTIPACK JL 4.0 5Fr Procedure catheter MULTIPACK 3DRC 5Fr Procedure catheter MULTIPACK Pigtail 5 Fr Ventriculography catheter Procedure Complications No complications Procedure Medications Medication Administration Route Dosage 0.9% NaCl I.V. 100 ml/hr Oxygen etCO2 Nasal cannula 2 l/min Lidocaine 2% added to field 20 Heparin Flush Bag added to field 2 bags (1000units/500ml NS) Versed I.V. 1 mg Fentanyl I.V. 25 mcg Hemodynamics Rest BSA: 1.81 (m2) O2 Consumption: Estimated: 201.78 (ml/min) O2 Consumption indexed : Estimated:111.48 (ml/min/m) Heart Rate: 50 (bpm) Pressure Samples Time Site Value (mmHg) Purpose Heart Use Rate(bpm) 9:37 LV 109/9,16 Snapshot 50 9:44 AO 109/68(86) Pullback 49 9:44 LV 107/4,18 Pullback 49 Gradients Valve Time Site 1 Site 2 Mean SEP/DFP Peak To Heart Use (mmHg) (sec/min) Peak Rate (mmHg) (bpm) Aortic 9:44 LV AO 0 4 0 49 107/4,18 109/68(86) Calculations Valve P-P Mean Valve Index Valve Source Name Gradient Area Flow (cm2) Aortic 0 0 0 0 Snapshots Pre Cath Intra NCS Post Cath Vital Signs Time Heart Resp SPO2 etCO2 NIBP Rhythm Pain Sedation Rate (ipm) (%) (mmHg) (mmHg) Status Level (bpm) 9:09:45 47 11 100 39 117/75(93) SB 0 (11) 10(A) , No pain 9:14:01 47 12 100 42 106/66(82) SB 0 (11) 10(A) , No pain 9:18:09 48 18 97 45.7 103/70(90) SB 0 (11) 10(A) , No pain 9:22:16 48 17 97 44.2 107/75(86) SB 0 (11) 9(A) , No pain 9:26:27 47 11 97 45.7 112/73(87) SB 0 (11) 9(A) , No pain 9:30:36 46 10 98 47.2 105/76(87) SB 0 (11) 9(A) , No pain 9:34:44 50 11 97 46.5 111/74(92) SB 0 (11) 9(A) , No pain 9:38:58 49 11 97 46.4 109/64(89) SB 0 (11) 9(A) , No pain 9:43:10 49 10 98 46.4 104/70(78) SB 0 (11) 10(A) , No pain 9:47:16 50 11 98 46.5 103/70(81) SB 0 (11) 10(A) , No pain 9:51:26 48 19 100 42 105/70(81) SB 0 (11) 10(A) , No pain Medications Time Medication Route Dose Verified Delivered Reason Notes Effe ctiveness by by 9:08:55 0.9% NaCl I.V. 100 Yuriy Mana used for ml/hr Jeff Valdez wire frame maker 9:09:02 Oxygen etCO2 2 Yuriy Mana used for Nasal l/min Jeff Valdez procedure cannula RN 9:09:06 Lidocaine 2% added 20ml Yuriy Yuriy for local to vial Jeff Aguilar MD anesthetic field 9:09:11 Heparin Flush added 2 Yuriy Yuriy used for Bag to bags Jeff Aguilar MD procedure (1000units/500ml field NS) 9:16:06 Fentanyl I.V. 25 Yuriy Mana for mcg Jeff Valdez sedation RN 9:16:40 Versed I.V. 1 mg Yuriy Mana for Jeff Valdez sedation training and development professional Log Time Note 8:49:56 Informed consent obtained and on chart 8:51:10 Indication : Abnormal stress treadmill study 8:51:29 Procedure Status Elective Heart Cath (OP). 8:51:34 Debbie Fritz RT(R) sent for patient. Start room use. 8:51:36 Time tracking: Regular hours (M-F 7:00 - 5:00) 8:51:44 Plan of Care:Hemodynamics will remain stable., Cardiac rhythm will remain stable., Comfort level will be maintained., Respiratory function will remain adequate., Patient/ family verbilizes understanding of procedure., Procedure tolerated without complication., Recovers from procedure without complications.. 8:54:42 Lab Result : BUN 15 mg/dl 8:54:42 Lab Result : Hematocrit 38.7 % 8:54:42 Lab Result : eGFR NONAFRICAN 61.02812 ml/min 8:54:42 Lab Result : Creatinine 1.3 mg/dl 8:54:42 Lab Result : Hemoglobin 13.1 g/dl 8:56:17 Arrival Date: 01/23/2020 12:00:00 AM 8:56:22 Patient Height : 66.93 inches 8:56:27 Patient Weight : 154.32 lbs 8:56:35 Insurance Payor : Private health insurance 8:58:15 Patient received from Pre/Post Procedure Room to CCL 1 Alert and oriented. Tansferred to table in Supine position. 8:58:17 Warm blankets applied, and xavi hugger turned on for patient comfort. 8:58:17 Correct patient and procedure confirmed by team. 9:04:54 ECG and BP/O2 sat monitors applied to patient. 9:04:55 Vital chart was started 9:05:21 H&P Date Dictated: 01/16/2020 Within 30 days and on chart., H&P Addendum completed by physician on day of procedure. (MUST COMPLETE FOR ALL OUTPATIENTS). 9:05:23 Pre-procedure instructions explained to patient. 9:05:25 Family in waiting room. 9:05:26 Patient NPO since Midnight. 9:06:35 Patient allergic to No known allergies 9:06:45 Is the patient allergic to Iodine/contrast media? No. 9:06:47 Is patient on blood thinner?Yes 9:06:50 ACC The patient was administered the following blood thiners within the last 24 hours: ACCPlavix 9:07:02 Patient diabetic? No. 9:07:07 Snore? No 9:07:09 Sleep apnea? No 9:07:15 Patient pain scale 1/10 ?. 9:07:25 IV patent on arrival in left forearm with 0.45%NaCl at [facility]. 9:07:30 Lab results completed and on chart. 9:07:58 Stress Test: yes; abnormal anterior,apical, and septal 9:08:08 Right Radial & Right Groin area was prepped with chlora-prep and draped in sterile fashion 9:08: Alarms reviewed by R. N. 9:08:09 Sharps counted by scrub and verified by R.N. 9:08:11 Physician paged 9:08:55 0.9% NaCl 100 ml/hr I.V. was administered by Mana Valdez RN; used for procedure; Verbal order read back and verified. 9:09:02 Oxygen 2 l/min etCO2 Nasal cannula was administered by Mana Valdez RN; used for procedure; Verbal order read back and verified. 9:09:06 Lidocaine 2% 20ml vial added to field was administered by Yuriy Aguilar MD; for local anesthetic; Verbal order read back and verified. 9:09:11 Heparin Flush Bag (1000units/500ml NS) 2 bags added to field was administered by Yuriy Aguilar MD; used for procedure; Verbal order read back and verified. 9:15:20 Physician arrived 9:15:22 --------ALL STOP TIME OUT------ 9:15:23 Final Timeout: patient, procedure, and site verified with staff and physician. All members of the team are in agreement. 9:15:53 Use device set Femoral Dx 9:15:55 ACIST Syringe (53316) opened to sterile field. 9:15:55 Bag Decanter (2002S) opened to sterile field. 9:15:56 Medline Cath Pack ([id number]) opened to sterile field. 9:15:57 ACIST Hand Control (73186) opened to sterile field. 9:15:58 ACIST Manifold (79451) opened to sterile field. 9:15:59 DIAGNOSTIC Multipack 5Fr catheter set ([id number]) opened to sterile field. 9:16:00 Tegaderm 4 x 4 (1626W) opened to sterile field. 9:16:02 SHEATH 5FR [place] ([id number]) opened to sterile field. 9:16:02 EMERALD Guide Wire (175-193) opened to sterile field. 9:16:06 Fentanyl 25 mcg I.V. was administered by Mana Valdez RN; for sedation; Verbal order read back and verified. 9:16:40 Versed 1 mg I.V. was administered by Mana Valdez RN; for sedation; Verbal order read back and verified. 9:27:55 Procedure started. 9:27:55 Full Disclosure recording started 9:28:50 Local anesthetic to right femoral artery with Lidocaine 2% by Yuriy Aguilar MD.INITIAL ACCESS ONLY 9:29:33 A 5 Fr sheath was inserted into the Right Femoral artery 9:30:14 A MULTIPACK JL 4.0 5Fr catheter was advanced over the wire and used for Procedure. 9:30:24 LCA angiography performed. 9:33:47 Catheter removed. 9:33:54 A MULTIPACK 3DRC 5Fr catheter was advanced over the wire and used for Procedure. 9:34:00 RCA angiography performed. 9:35:28 Catheter removed. 9:37:10 A MULTIPACK Pigtail 5 Fr catheter was advanced over the wire and used for Ventriculography. 9:37:23 LV angiography performed. 9:38:02 EF : 50 % 9:44:27 Catheter removed. 9:44:31 EXOSEAL 5Fr (EX500) opened to sterile field. 9:45:17 Sheath removed intact; hemostasis achieved with Exoseal to the Right Femoral artery. 9:45:20 Procedure ended.(Physican Out) 9:45:42 Fluoroscopy time 01.60 minutes. 9:46:03 Flurop Dose total: 361 9:46:03 Fluoroscopy dose: 361 mGy 9:46:08 Dose Area Product 03559 mGy/cm. 9:46:14 Contrast amount:Isovue 300 61ml. 9:46:21 Maximum allowable dose exceeded? No. 9:46:22 Sharps counted by scrub and verified by R.N. 9:48:03 Insertion/operative site no bleeding no hematoma. 9:48:07 Post-op/insertion site Right Femoral artery dressed using a 4 x 4 and Tegaderm. 9:48:11 Post Procedure Pulses reassessed and unchanged 9:49:14 Post-procedure physical assessment completed. ASA score P 2 - A patient with mild systemic disease as per Yuriy Aguilar MD. 9:49:21 Post procedure rhythm: sinus rhythm 9:49:24 Estimated blood loss: 10 ml 9:49:26 Post procedure instruction explained to patient.Patient verbalizes understanding. 9:50:53 Procedure type changed to Cath procedure, Diagnostic procedure, LHC, [facility] w/Coronaries, Sedation Charges, Moderate Sedation up to 30 minutes 9:50:55 Procedure and supply charges have been captured, reviewed, submitted and are correct. 9:51:21 Procedure Complication : No complications 9:51:24 Vital chart was stopped 9:51:34 [facility] Findings: MVD- manage w/ optimal medication therapy 9:51:37 See physician's report for complete and final results. 9:51:42 Report given to Pre/Post Procedure Room. 9:51:48 Patient transfered to Pre/Post Procedure Room with Stretcher. 9:51:50 Procedure ended. 9:51:50 Full Disclosure recording stopped 9:51:53 End room use (Document Last) 9:52:13 End room use (Document Last) 9:52:44 End room use (Document Last) Device Usage Item Name Manufacture Quantity Catalog Hospital Part Current Minimal L ot# / Number Charge Number Stock Stock Serial# Code ACIST Acist 1 37856 357400 268991 [id number] 20 Syringe Medical (76124) Systems Inc Bag Microtek 1 2001S 052508 95105 776280 5 Decanter Medical Inc. () Medline Medline 1 [id number] 872374 16477 525643 5 Cath Pack ([id number]) ACIST Hand Acist 1 24070 059744 258262 244353 5 Control Medical (21408) Systems Inc ACIST Acist 1 76264 312613 313989 703043 5 Manifold Medical (75484) Systems Inc DIAGNOSTIC Cardinal 1 [id number] 108590 11534 970682 30 Multipack Health 5Fr catheter set (KK4492) Tegaderm 4 3M 1 1626W 400399 792235 310539 5 x 4 (1626W) SHEATH 5FR Terumo 1 QPM690 335431 939602 444324 5 [place] (XTS947) EMERALD Cardinal 1 066-885 560375 339710 310166 5 Guide Wire [facility] (422-833) MULTIPACK Cardinal 1 228891 5 JL 4.0 5Fr Health catheter MULTIPACK Cardinal 1 497816 5 3DRC 5Fr Health catheter MULTIPACK Cardinal 1 620003 5 Pigtail 5 Health Fr catheter EXOSEAL 5Fr Cardinal 1 EX500 217933 [id number] [id number] 10 (EX500) Health Signature Audit [place] Stage Time Signature Unsigned Intra-Procedure 01/23/2020 Марина Little 9:52:13 AM RT(R) Intra-Procedure 01/23/2020 Mana Valdez 9:52:44 AM RN Intra-Procedure 01/23/2020 Yuriy Aguilar MD 9:53:12 AM [facility] [address] [place] [address]
[2020-01-23] MEDS ORDERED: LIPITOR20 MG PO (07:48)
[2020-01-23] MEDS ORDERED: RANEXA500 MG PO (07:49)
[2020-01-23 08:01] VITALS: BP 111/67; Ht 170.2 cm; Wt 69.8 kg
[2020-01-23 08:09] LABS: BASOPHILS 0.5 % (0-2); EOSINOPHILS 3.5 % (0-7); HEMATOCRIT 38.7 % (42.0-54.0); HEMOGLOBIN 13.1 g/dL (13.5-17.5); IMMATURE GRANULOCYTES 0.5 % (0-5); LYMPHOCYTES 27.9 % (15-50); MCH 32.5 pg (26.0-34.0); MCHC 33.9 g/dL (31.0-37.0); MEAN PLATELET VOLUME 9.3 fL (7.4-10.4); MONOCYTES 9.6 % (2-11); PLATELET COUNT 193 10x3/uL (130-400); RBC 4.03 10x6/uL (4.20-6.10); RDW 12.9 % (11.5-14.5); WBC 4.3 10x3/uL (4.8-10.8)
[2020-01-23 08:20] LABS: ANION GAP 10.1 mmol/L (8-16); CALCIUM 8.9 mg/dL (8.5-10.1); CARBON DIOXIDE 26.9 mmol/L (21.0-32.0); CHOL - HDL RATIO 4.6 ratio (2.3-4.9); CREATININE - SERUM 1.3 mg/dL (0.6-1.3); LDL-HDL RATIO 3.1 ratio (1.5-3.5)
--- NOTE | 2020-01-23 10:00 | NUR ---
PT REC'D TO ROOM 6 VIA STRETCHER FROM BUSINESS ANALYST. MONITORS ESTAB. DR PACKER AT TO UPDATE PT AND HIS . SEE STAMPING BENCH DIE MAKER, ALARMS ON AND C/L IN REACH.
--- NOTE | 2020-01-23 10:15 | NUR ---
R GROIN SITE SOFT, NO S/S BLEEDING OR HEMATOMA. PULSES PALP. R LEG/FOOT WARM. PT RESTING QUIETLY, VSS. ALARMS ON AND C/L IN REACH.
--- NOTE | 2020-01-23 10:45 | NUR ---
R GROIN SITE SOFT, C/D/I. PT RESTING QUIETLY, VSS. R LEG/FOOT WARM WITH PALP PULSES AND BRISK CAP REFILL. AT BS, C/L IN REACH.
--- NOTE | 2020-01-23 11:00 | NUR ---
R GROIN SITE SOFT, C/D/I. BEGIN GRADUALLY RAISING HOB. ALARMS ON AND C/L IN REACH.
--- NOTE | 2020-01-23 11:30 | NUR ---
R GROIN SITE SOFT, NO S/S BLEEDING OR HEMATOMA. HOB UP, SANDWICH TRAY AND COLA PROVIDED. VSS. C/L IN REACH.
--- NOTE | 2020-01-23 11:50 | NUR ---
R GROIN SITE C/D/I, NO S/S BLEEDING OR HEMATOMA. PIV D/C'D INTACT, DSG APPLIED. PT ALLOWED UP TO GET DRESSED AND GO TO BR INDEPENDENTLY.
--- NOTE | 2020-01-23 12:09 | NUR ---
ALL DISCHARGE INSTRUCTIONS REVIEWED WITH PT AND HIS - INCLUDING RESTRICTIONS, MEDS AND F/U APPT - UNDERSTANDING VERBALIZED.
--- NOTE | 2020-01-23 12:15 | NUR ---
PT D/C'D VIA WC TO PRIVATE VEHICLE WITH ALL PAPER WORK AND BELONGINGS.
== END 2020-01-23 12:15 | disposition home or self-care (01) ==
LOC: D.CATH 07:03
PROVIDERS: ATTEND Internal Medicine Cardiovascular Disease
DX: I25.119 Atherosclerotic heart disease of native coronary artery with unspecified angina pectoris (principal); R94.39 Abnormal result of other cardiovascular function study; R06.00 Dyspnea, unspecified; R42 Dizziness and giddiness; E78.5 Hyperlipidemia, unspecified